=== PATIENT | female | born 1945 | race Caucasian/White ===

== ENCOUNTER 2019-06-08 11:22 | Inpatient (IN) ==
[2019-06-08] MEDS ORDERED: TUSSIONEX PENNKINETIC SUSP PO PRN (13:19)
[2019-06-08] MEDS ORDERED: ZOFRAN INJ 4 MG VIAL IVP PRN (13:19)
--- NOTE | 2019-06-08 13:45 | DR.H&P ---
H&P - History & Physical for Day of: H&P Date: 06/08/19 - Chief Complaint Chief Complaint: FEVER, CCC, FLU A - History of Present Illness History of Present Illness: PT IS 73 WF DIRECT ADMIT FROM DR SALDIVAR OFFICE WITH FLU A, BRONCHITIS FAILED OUTPT THERAPY WITH PO Z PACK TAMIFLU, IM KENALOG AND ROCEPHIN WITHOUT IMPROVEMENT. PT HAD FEVER IN OFFICE TODAY WITH DIFFUSE EXP WHEEZING ADN ELEVATED BP. PT ADMITTED FOR TREATMENT OF INFLUENZA A WITH BRONCHITIS, R/O PNEUMONIA - Past Medical History Past Medical History: Arthritis, Diabetes, Dyslipidemia, Hypertension - Social History Does patient currently use any type of tobacco product: No Have you used tobacco products in the last 12 months: No Type of Tobacco Use: None Does any household member use tobacco: No Alcohol Use: None Drug Use: None Risks, benefits, and alternatives of opioids discussed: Yes Prescription drug monitoring program results: PDMP reviewed and no concerns identified - Review of Systems Constitutional: Fever, Chills, Sweats Eyes: No Symptoms Reported ENT: Nose Discharge, Throat Pain Respiratory: Cough, Shortness of Breath, Sputum, Wheezing Cardiovascular: No Symptoms Reported Gastrointestinal: Nausea Genitourinary: No Symptoms Reported Musculoskeletal: Back Pain Skin: No Symptoms Reported Neurological: No Symptoms Reported Oriented: Normal Eyes: Normal Ear: Normal Nose: Normal Throat: Normal Respiratory: Diminished Throughout, Rhonchi Throughout, RLL Diminished, LLL Diminished Cardiovascular: Tachycardia : Normal Auscultation: Bowel Sounds: Normal Palpation: Normal Tenderness: Normal Skin: Decreased Turgur Musculoskeletal: Back:Thoracic, Back:Lumbar Psychiatric: Anxiety Affect: Anxious Speech Pattern: Clear, Appropriate - Assessment/Plan (1) Acute bronchitis Status: Acute Plan: ADMIT, ADMISSION CXR, LABS CBC CMP UA. RESP CONSULT FOR DUO NEBS, IV HYDRATION, IV ATBX AND IV SOLU MEDROL. BLOOD AND SPUTUM CULTURES ON ADMISSION. BS CONTROL, SSI. REPEAT AM LABS (2) Influenza A Status: Acute (3) Diabetes Status: Acute (4) Hypertension Status: Acute - Allergies Allergies/Adverse Reactions: Allergies Allergy/AdvReac Type Severity Reaction Status Date / Time No Known Drug Allergies Allergy Verified 06/08/19 13:47
--- NOTE | 2019-06-08 14:35 | RAD ---
HISTORYFever and bronchitisSTUDYPA and lateral chestCOMPARISONNoneFINDINGSThere is a mild patchy infiltrate in the right upper lobe anteriorly. The left lung is grossly clear. There is no effusion. The heart and mediastinum are unremarkable.IMPRESSIONMild right upper lobe anterior subsegmental atelectasis or pneumonitisElectronically signed by: HERBIE JUAN (Jun 08, 2019 14:34:22)
[2019-06-08 14:43] LABS: BASOPHILS # (AUTO) 0.1 X10^3/uL (0.0-0.1); BASOPHILS % (AUTO) 0.7 % (0.2-1.0); EOSINOPHILS # (AUTO) 0.1 x10^3/uL (0.0-0.2); EOSINOPHILS % (AUTO) 0.7 % (0.9-2.9); HEMATOCRIT 35.9 % (36.0-47.0); HEMOGLOBIN 12.1 g/dL (12.0-16.0); LYMPHOCYTES # (AUTO) 2.6 X10^3/uL (1.3-2.9); LYMPHOCYTES % (AUTO) 35.9 % (21.0-51.0); MEAN CORPUSCULAR HEMOGLOBIN 29.9 pg (27.0-34.0); MEAN CORPUSCULAR HGB CONC 33.6 g/dL (33.0-35.0); MEAN CORPUSCULAR VOLUME 88.9 fL (80.0-100.0); MEAN PLATELET VOLUME 6.6 fL (7.4-11.0); MONOCYTES # (AUTO) 0.5 x10^3/uL (0.3-0.8); NEUTROPHILS # (AUTO) 4.1 x10^3/uL (2.2-4.8); NEUTROPHILS % (AUTO) 55.7 % (42.0-75.0); PLATELET COUNT 358 X10^3/uL (150.0-450.0); RED BLOOD COUNT 4.04 X10^6/uL (3.5-5.4); RED CELL DISTRIBUTION WIDTH 13.8 % (11.6-16.5); WHITE BLOOD COUNT 7.3 X10^3/uL (3.6-10.0)
[2019-06-08 14:46] VITALS: BMI 24.0
[2019-06-08 14:56] LABS: ALANINE AMINOTRANSFERASE 35 Units/L (12-78); ALBUMIN 3.6 g/dL (3.4-5.0); ALKALINE PHOSPHATASE 71 Units/L (46-116); ASPARTATE AMINO TRANSFERASE 27 Units/L (15-37); BLOOD UREA NITROGEN 6 mg/dL (7-18); CALCIUM 9.2 mg/dL (8.5-10.1); CARBON DIOXIDE 27.3 mmol/L (21-32); CHLORIDE 102 mmol/L (98-107); COR NA(FOR HYPERGLY) 139 mmol/L (136-145); CREATININE 0.68 mg/dL (0.55-1.02); SODIUM 139 mmol/L (136-145); TOTAL PROTEIN 7.7 g/dL (6.4-8.2); eGFR NON BLACK RACES > 60 (>60)
[2019-06-08] MEDS: NS 1000 ML 1,000 ML IV SCH (15:24)
[2019-06-08] MEDS: ROBITUSSIN (PLAIN) PO SCH ×3 (15:24→21:42)
[2019-06-08] MEDS: SOLU-Medrol 125 MG VIAL IVP SCH ×3 (15:25→21:47)
[2019-06-08] MEDS ORDERED: SALINE 3% 15 ML NEB TX NEB ONE (16:28)
[2019-06-08] MEDS: PROVENTIL NEB TX 0.083% 2.5MG/ 3ML NEB SCH ×2 (17:24→21:10)
[2019-06-08] MEDS: ZITHROMAX INJ 500 MG VIAL 500 MG in NS 250 ML IV 250 ML IV SCH (18:39)
[2019-06-08] MEDS: SNACK - Diabetic Appropriate PO SCH (20:55)
[2019-06-09] MEDS: HumuLIN R SUBCUT PRN ×5 (00:42→21:19)
[2019-06-09 06:20] LABS: BASOPHILS % (AUTO) 0.2 % (0.2-1.0); HEMATOCRIT 32.7 % (36.0-47.0); HEMOGLOBIN 11.2 g/dL (12.0-16.0); LYMPHOCYTES # (AUTO) 1.6 X10^3/uL (1.3-2.9); LYMPHOCYTES % (AUTO) 20.8 % (21.0-51.0); MEAN CORPUSCULAR HEMOGLOBIN 30.1 pg (27.0-34.0); MEAN CORPUSCULAR HGB CONC 34.2 g/dL (33.0-35.0); MEAN PLATELET VOLUME 6.9 fL (7.4-11.0); MONOCYTES # (AUTO) 0.1 x10^3/uL (0.3-0.8); NEUTROPHILS # (AUTO) 5.8 x10^3/uL (2.2-4.8); PLATELET COUNT 353 X10^3/uL (150.0-450.0); RED BLOOD COUNT 3.72 X10^6/uL (3.5-5.4); RED CELL DISTRIBUTION WIDTH 13.1 % (11.6-16.5); WHITE BLOOD COUNT 7.6 X10^3/uL (3.6-10.0)
[2019-06-09 06:29] LABS: ALANINE AMINOTRANSFERASE 33 Units/L (12-78); ALBUMIN 3.1 g/dL (3.4-5.0); ALKALINE PHOSPHATASE 60 Units/L (46-116); ASPARTATE AMINO TRANSFERASE 27 Units/L (15-37); BLOOD UREA NITROGEN 8 mg/dL (7-18); CALCIUM 8.7 mg/dL (8.5-10.1); CARBON DIOXIDE 26.2 mmol/L (21-32); CHLORIDE 103 mmol/L (98-107); COR CA(FOR HYPOALB) 9.4 mg/dL (8.5-10.1); COR NA(FOR HYPERGLY) 141 mmol/L (136-145); CREATININE 0.58 mg/dL (0.55-1.02); SODIUM 138 mmol/L (136-145); TOTAL PROTEIN 6.9 g/dL (6.4-8.2); eGFR NON BLACK RACES > 60 (>60)
[2019-06-09] MEDS: NS 1000 ML 1,000 ML IV SCH ×2 (06:38→16:22)
[2019-06-09 07:31] LABS: PLATELET MORPHOLOGY COMMENT NORMAL (NORMAL)
[2019-06-09] MEDS: PROVENTIL NEB TX 0.083% 2.5MG/ 3ML NEB SCH ×4 (08:55→20:23)
[2019-06-09] MEDS: ZITHROMAX INJ 500 MG VIAL 500 MG in NS 250 ML IV 250 ML IV SCH (09:16)
[2019-06-09] MEDS: ROBITUSSIN (PLAIN) PO SCH ×4 (09:16→21:19)
[2019-06-09] MEDS: TYLENOL 325 MG TAB PO PRN (10:50)
[2019-06-09] MEDS: LOVENOX INJ 40 MG SYR SC SCH (10:51)
[2019-06-09] MEDS ORDERED: TORADOL 15 MG VIAL IVP ONE (13:06)
[2019-06-09] MEDS: SYNTHROID 75 mcg TAB PO SCH (14:13)
[2019-06-09] MEDS: ZESTRIL TAB 5 MG PO SCH ×2 (14:13→21:19)
[2019-06-09] MEDS: FERROUS GLUCONATE PO SCH (14:13)
[2019-06-09] MEDS: FOLTX PO SCH (14:14)
[2019-06-09] MEDS: SNACK - Diabetic Appropriate PO SCH (21:18)
[2019-06-09] MEDS: ZOCOR TAB 20 MG PO SCH (21:19)
[2019-06-10] MEDS: NS 1000 ML 1,000 ML IV SCH ×3 (06:15→21:34)
[2019-06-10 06:32] LABS: BASOPHILS % (AUTO) 0.2 % (0.2-1.0); EOSINOPHILS % (AUTO) 0.1 % (0.9-2.9); HEMATOCRIT 29.1 % (36.0-47.0); HEMOGLOBIN 9.9 g/dL (12.0-16.0); LYMPHOCYTES # (AUTO) 3.1 X10^3/uL (1.3-2.9); LYMPHOCYTES % (AUTO) 21.1 % (21.0-51.0); MEAN CORPUSCULAR HEMOGLOBIN 30.1 pg (27.0-34.0); MEAN CORPUSCULAR VOLUME 88.5 fL (80.0-100.0); MEAN PLATELET VOLUME 6.6 fL (7.4-11.0); MONOCYTES # (AUTO) 1.4 x10^3/uL (0.3-0.8); MONOCYTES % (AUTO) 9.5 % (0.0-13.0); NEUTROPHILS # (AUTO) 10.3 x10^3/uL (2.2-4.8); NEUTROPHILS % (AUTO) 69.1 % (42.0-75.0); PLATELET COUNT 369 X10^3/uL (150.0-450.0); RED BLOOD COUNT 3.29 X10^6/uL (3.5-5.4); RED CELL DISTRIBUTION WIDTH 13.7 % (11.6-16.5); WHITE BLOOD COUNT 14.8 X10^3/uL (3.6-10.0)
[2019-06-10 06:44] LABS: ALANINE AMINOTRANSFERASE 34 Units/L (12-78); ALBUMIN 2.9 g/dL (3.4-5.0); ALKALINE PHOSPHATASE 52 Units/L (46-116); ASPARTATE AMINO TRANSFERASE 27 Units/L (15-37); BLOOD UREA NITROGEN 10 mg/dL (7-18); CALCIUM 8.3 mg/dL (8.5-10.1); CARBON DIOXIDE 25.6 mmol/L (21-32); CHLORIDE 108 mmol/L (98-107); COR CA(FOR HYPOALB) 9.2 mg/dL (8.5-10.1); COR NA(FOR HYPERGLY) 144 mmol/L (136-145); CREATININE 0.74 mg/dL (0.55-1.02); SODIUM 143 mmol/L (136-145); TOTAL PROTEIN 6.1 g/dL (6.4-8.2); eGFR NON BLACK RACES > 60 (>60)
[2019-06-10] MEDS: PROVENTIL NEB TX 0.083% 2.5MG/ 3ML NEB SCH ×4 (08:40→21:03)
[2019-06-10] MEDS: ZESTRIL TAB 5 MG PO SCH ×2 (09:14→20:44)
[2019-06-10] MEDS: SYNTHROID 75 mcg TAB PO SCH (09:14)
[2019-06-10] MEDS: FOLTX PO SCH (09:14)
[2019-06-10] MEDS: FERROUS GLUCONATE PO SCH (09:14)
[2019-06-10] MEDS: LOVENOX INJ 40 MG SYR SC SCH (09:14)
[2019-06-10] MEDS: ROBITUSSIN (PLAIN) PO SCH ×4 (09:14→20:44)
[2019-06-10] MEDS: ZITHROMAX INJ 500 MG VIAL 500 MG in NS 250 ML IV 250 ML IV SCH (09:15)
[2019-06-10] MEDS: TYLENOL 325 MG TAB PO PRN (09:25)
[2019-06-10] MEDS: HumuLIN R SUBCUT PRN ×2 (11:21→20:43)
--- NOTE | 2019-06-10 13:32 | RAD ---
HISTORYBronchitisSTUDYChest, PA and [id number]/13/2020FINDINGSContinued normal heart size. The left chest remains clear. There i s persistent but decrease right upper lobe infiltrate. There is no new abnormality, pleural fluid or hilar adenopathy.IMPRESSIONPersistent but improved right upper lobe infiltrate. No new abnormality. C ontinued follow-up indicated.Electronically signed by: LILLIAN PARKINSON (Jun 10, 2019 13:30:58)
[2019-06-10] MEDS: SOLU-Medrol 40 MG VIAL IVP SCH ×2 (15:38→21:34)
[2019-06-10] MEDS ORDERED: KLOR-CON PO PRN (18:30)
[2019-06-10] MEDS ORDERED: K-DUR TAB 20 MEQ PO PRN (18:30)
[2019-06-10] MEDS ORDERED: POTASSIUM CHL 40 MEQ/NS 0.45% 500 ML IV PRN (18:30)
[2019-06-10] MEDS ORDERED: POTASSIUM CHLORIDE LIQ 20 MEQ UDC PO PRN (18:30)
[2019-06-10] MEDS ORDERED: K-RIDER 10 MEQ/NS 100 ML 10 MEQ/100 ML BAG IV PRN (18:30)
[2019-06-10] MEDS ORDERED: POTASSIUM CHL 60 MEQ/NS 0.45% 500 ML IV PRN (18:30)
[2019-06-10] MEDS ORDERED: MICRO K EXTEN CAP 10 MEQ PO PRN (18:30)
[2019-06-10] MEDS: SNACK - Diabetic Appropriate PO SCH (20:42)
[2019-06-10] MEDS: ZOCOR TAB 20 MG PO SCH (20:44)
[2019-06-10] MEDS: MAGNESIUM SULFATE 1 GRAM/100 mL PREMIX 1 GM/100 ML BAG IV PRN ×2 (20:45→21:52)
[2019-06-11] MEDS: SOLU-Medrol 40 MG VIAL IVP SCH (05:34)
[2019-06-11] MEDS: HumuLIN R SUBCUT PRN (05:35)
[2019-06-11] MEDS: NS 1000 ML 1,000 ML IV SCH (05:53)
--- NOTE | 2019-06-11 06:33 | RAD ---
HISTORYFollow-up pneumoniaSTUDYCHEST, PA/LAT [id number]/15/2020FINDINGSThe heart is within normal limits in size. The bud are normal. The lungs are well inflated and free of acute infiltrates. The right upper lobe is now clear. No pleural effusions are identified. Bony thorax is unremarkable.IMPRESSIONLungs now clearElectronically signed by: JORGE SHELTON (Jun 11, 2019 06:31:44)
[2019-06-11 06:37] LABS: BASOPHILS % (AUTO) 0.3 % (0.2-1.0); HEMATOCRIT 29.4 % (36.0-47.0); LYMPHOCYTES # (AUTO) 1.5 X10^3/uL (1.3-2.9); MEAN CORPUSCULAR HEMOGLOBIN 29.9 pg (27.0-34.0); MEAN CORPUSCULAR HGB CONC 34.1 g/dL (33.0-35.0); MEAN CORPUSCULAR VOLUME 87.8 fL (80.0-100.0); MEAN PLATELET VOLUME 6.6 fL (7.4-11.0); MONOCYTES # (AUTO) 0.7 x10^3/uL (0.3-0.8); MONOCYTES % (AUTO) 5.4 % (0.0-13.0); NEUTROPHILS # (AUTO) 10.4 x10^3/uL (2.2-4.8); NEUTROPHILS % (AUTO) 82.3 % (42.0-75.0); PLATELET COUNT 409 X10^3/uL (150.0-450.0); RED BLOOD COUNT 3.35 X10^6/uL (3.5-5.4); RED CELL DISTRIBUTION WIDTH 13.4 % (11.6-16.5); WHITE BLOOD COUNT 12.7 X10^3/uL (3.6-10.0)
[2019-06-11 06:45] LABS: ALANINE AMINOTRANSFERASE 37 Units/L (12-78); ALBUMIN 2.9 g/dL (3.4-5.0); ALKALINE PHOSPHATASE 54 Units/L (46-116); ASPARTATE AMINO TRANSFERASE 22 Units/L (15-37); BLOOD UREA NITROGEN 7 mg/dL (7-18); CALCIUM 8.4 mg/dL (8.5-10.1); CARBON DIOXIDE 26.6 mmol/L (21-32); CHLORIDE 106 mmol/L (98-107); COR CA(FOR HYPOALB) 9.3 mg/dL (8.5-10.1); COR NA(FOR HYPERGLY) 144 mmol/L (136-145); CREATININE 0.52 mg/dL (0.55-1.02); MAGNESIUM 2.4 mg/dL (1.7-2.9); SODIUM 141 mmol/L (136-145); TOTAL PROTEIN 6.3 g/dL (6.4-8.2); eGFR NON BLACK RACES > 60 (>60)
[2019-06-11 07:12] LABS: BAND NEUTROPHILS % 4 % (0-10); PLATELET MORPHOLOGY COMMENT NORMAL (NORMAL)
[2019-06-11] MEDS: PROVENTIL NEB TX 0.083% 2.5MG/ 3ML NEB SCH (09:32)
[2019-06-11] MEDS: ROBITUSSIN (PLAIN) PO SCH (10:28)
[2019-06-11] MEDS: FOLTX PO SCH (10:28)
[2019-06-11] MEDS: SYNTHROID 75 mcg TAB PO SCH (10:29)
[2019-06-11] MEDS: FERROUS GLUCONATE PO SCH (10:29)
[2019-06-11] MEDS: ZESTRIL TAB 5 MG PO SCH (10:29)
[2019-06-11 11:00] VITALS: BP 174/87
== END 2019-06-11 10:55 | disposition home or self-care (01) | DRG 195 ==
LOC: MED/SURG 13:03
PROVIDERS: ADMIT Internal Medicine; ATTEND Internal Medicine
DX: E78.49 Other hyperlipidemia; J10.1 Influenza due to other identified influenza virus with other respiratory manifestations; I10 Essential (primary) hypertension; J18.0 Bronchopneumonia, unspecified organism; M19.90 Unspecified osteoarthritis, unspecified site; E11.65 Type 2 diabetes mellitus with hyperglycemia
CPT/HCPCS: 36415; 71020; 71046; 80053; 83735; 85025; 87040; 87070; 87205; 94640; 94760; 97161; A4222; J0456; J1650; J1815; J1885; J2920; J2930; J3475; J3490; J7030; J7050; J7613

== ENCOUNTER 2021-04-28 13:02 | Inpatient (IN) ==
[2021-04-28 13:35] LABS: ABG BASE EXCESS 3.7 mmol/L (-2.0-2.0); ABG HCO3 27.7 mmol/L (22-26)
[2021-04-28 13:37] LABS: ABG ALLEN TEST POS
--- NOTE | 2021-04-28 14:09 | DR.SOBA ---
HPI Time Seen Time Seen by Provider: 04/28/21 13:58 Primary Care Physician Primary Care Physician: MAURICIO VENTURA Complaints Chief Complaint Doctors Comments: SOB for 1 week with syncopal episode this am while making a cup of coffee at the sink. Upon ariva o2 sT WAS IN THE 70'S AND 80'S Chief Complaint:: PT C/O SHORTNESS OF BREATH X1 WEEK, SYNCOPE EPISODE ONSET THIS AM, & FEELING LIKE SHE IS DEHYDRATED X2-3. PT STATES SHE WAS STANDING @ SINK TRYING TO FIX A CUP F COFFEE & PASSED OUT. UPON ARRIVA PT'S O2 SATS IN THE 70'S & 80'S. PT DENIES ANY HX OF COPD & CHF @ THIS TIME. COVID-19 Coronavirus risk:travel/contact w/high risk person: No Has patient experienced Coronavirus symptoms: No Source History Provided: Patient Mode of Arrival Mode of Arrival: Wheelchair Timing Onset of Chief Complaint: 04/21/21 PMH PMH Past Medical History: Yes Past Medical History: Arthritis, Diabetes, Dyslipidemia and Hypertension Past Surgical History: No Surgical History: No History Family History History of Family Medical Conditions: Yes Family Medical History: PA Social History Do you use any recreational Drugs:: No Travel Risk Coronavirus risk:travel/contact w/high risk person: No Has patient experienced Coronavirus symptoms: No Infectious screening Have you traveled outside the country in the last 6 months?: No Isolation: Standard ROS Review of Systems Constitutional: Weakness Eyes: No Symptoms Reported ENTM: No Symptoms Reported Respiratoy: Moist Cough and Short of Breath Cardiovascular: No Symptoms Reported Gastrointestinal/Abdominal: No Symptoms Reported Genitourinary: No Symptoms Reported Neurological: Other (SYNCOPAL EPISODE THIS AM) Musculoskeletal: No Symptoms Reported Integumentary: No Symptoms Reported Hematologic/Lymphatic: No Symptoms Reported Endocrine: No Symptoms Reported Psychiatric: No Symptoms Reported All Other Systems: Reviewed and Negative PE Vital Signs Vitals: Temperature 98.2 F Pulse Rate 91 Respiratory Rate 24 Blood Pressure [Left Arm] 165/89 Blood Pressure 172/82 O2 Sat by Pulse Oximetry 98 General Limitations: Other (APPEARED LETHARGIC) General Appearance: Alert and In No Apparent Distress Head Head Exam: Normal Inspection Eyes Eye exam: Normal Appearance ENT ENT Exam: Normal Exam Neck Neck Exam: Normal Inspection Chest Chest Inspection: Normal Inspection Respiratory Respiratory Exam: Bilateral: Rhonchi and Bilateral: Decreased Breath Sounds Cardiovascular Cardiovascular Exam: Regular Rate and Normal Rhythm Abdominal Exam Abdominal Exam: Normal Inspection, Normal Bowel Sounds and Soft Extremities Extremities Exam: Normal Inspection Back Back Exam: Normal Inspection Neurologic Neurological Exam: Alert and Oriented X3 Psychiatric Psychiatric Exam: Normal Affect and Normal Mood Skin Skin Exam: Warm, Dry, Intact and Normal Color MDM Differential Diagnosis Differential Diagnosis Comment:: PNEUMONIA,dYSPNEA,HYPOXIA,SYNCOPAL EPISODE,DEHYDRATION COURSE Consultation Consultation Comments: sPOKE TO dR Hoang AT 1645 AND SHE STATED TO ADMITH THE PATIENT TO THE [facility] Labs Reviewed Result Diagrams: 04/28/21 13:22 04/28/21 13:22 Laboratory: WBC 16.4 X10^3/uL (3.6-10.0) H 04/28/21 13:22 RBC 4.14 X10^6/uL (3.5-5.4) 04/28/21 13:22 Hgb 12.0 g/dL (12.0-16.0) 04/28/21 13:22 Hct 35.4 % (36.0-47.0) L 04/28/21 13:22 MCV 85.5 fL (80.0-100.0) 04/28/21 13:22 MCH 29.1 pg (27.0-34.0) 04/28/21 13:22 MCHC 34.0 g/dL (33.0-35.0) 04/28/21 13:22 RDW 13.5 % (11.6-16.5) 04/28/21 13:22 Plt Count 518 X10^3/uL (150.0-450.0) H 04/28/21 13:22 MPV 6.6 fL (7.4-11.0) L 04/28/21 13:22 Neut % (Auto) 74.6 % (42.0-75.0) 04/28/21 13:22 Lymph % (Auto) 11.4 % (21.0-51.0) L 04/28/21 13:22 [place] % (Auto) 13.8 % (0.0-13.0) H 04/28/21 13:22 Eos % (Auto) 0.0 % (0.9-2.9) L 04/28/21 13:22 Baso % (Auto) 0.2 % (0.2-1.0) 04/28/21 13:22 Neut # (Auto) 12.2 x10^3/uL (2.2-4.8) H 04/28/21 13:22 Lymph # (Auto) 1.9 X10^3/uL (1.3-2.9) 04/28/21 13:22 [place] # (Auto) 2.3 x10^3/uL (0.3-0.8) H 04/28/21 13:22 Eos # (Auto) 0.0 x10^3/uL (0.0-0.2) 04/28/21 13:22 Baso # (Auto) 0.0 X10^3/uL (0.0-0.1) 04/28/21 13:22 Absolute Nucleated RBC 0.2 /100WBC 04/28/21 13:22 Sample Site Rra 04/28/21 13:32 ABG pH 7.460 (7.35-7.45) H 04/28/21 13:32 ABG pCO2 39.0 mmHg (35.0-45.0) 04/28/21 13:32 ABG pO2 47.0 mmHg (80.0-100.0) L* 04/28/21 13:32 ABG HCO3 27.7 mmol/L (22-26) H 04/28/21 13:32 ABG O2 Saturation 85.0 % (90-100) L 04/28/21 13:32 ABG Base Excess 3.7 mmol/L (-2.0-2.0) H 04/28/21 13:32 Patrice Test Pos 04/28/21 13:32 A-a Gradient 54.0 mmHg 04/28/21 13:32 FiO2 21.0 04/28/21 13:32 Blood Gas Comments Pt nigel well eb 04/28/21 13:32 Sodium 135 mmol/L (136-145) L 04/28/21 13:22 Corrected Sodium 137 mmol/L (136-145) 04/28/21 13:22 Potassium 3.7 mmol/L (3.5-5.1) 04/28/21 13:22 Chloride 97 mmol/L (98-107) L 04/28/21 13:22 Carbon Dioxide 28.3 mmol/L (21-32) 04/28/21 13:22 BUN 12 mg/dL (7-18) 04/28/21 13:22 Creatinine 0.67 mg/dL (0.55-1.02) 04/28/21 13:22 Est GFR (MDRD) Af Amer > 60 (>60) 04/28/21 13:22 Est GFR (MDRD) Non-Af > 60 (>60) 04/28/21 13:22 Glucose 193 mg/dL (65-99) H 04/28/21 13:22 Calcium 9.1 mg/dL (8.5-10.1) 04/28/21 13:22 Corrected Calcium 9.9 mg/dL (8.5-10.1) 04/28/21 13:22 Total Bilirubin 0.40 mg/dL (0.2-1.0) 04/28/21 13:22 AST 33 Units/L (15-37) 04/28/21 13:22 ALT 40 Units/L (12-78) 04/28/21 13:22 Alkaline Phosphatase 71 Units/L (46-116) 04/28/21 13:22 Creatine Kinase 44 Units/L (26-192) 04/28/21 13:22 CK-MB (CK-2) < 1.0 ng/mL (0-4.0) 04/28/21 13:22 CK/CKMB % Calc 2.3 % (<4) 04/28/21 13:22 Troponin I < 0.02 ng/mL (0-1.5) 04/28/21 13:22 Total Protein 7.2 g/dL (6.4-8.2) 04/28/21 13:22 Albumin 3.0 g/dL (3.4-5.0) L 04/28/21 13:22 Globulin 4.2 g/dL (2.5-4.5) 04/28/21 13:22 Albumin/Globulin Ratio 0.7 Ratio (1.1-2.1) L 04/28/21 13:22 SARS-CoV-2 (PCR) Positive (NEGATIVE) A 04/28/21 14:42 Influenza Type A (PCR) Negative (NEGATIVE) 04/28/21 14:42 Influenza Type B (PCR) Negative (NEGATIVE) 04/28/21 14:42 RSV (PCR) Negative (NEGATIVE) 04/28/21 14:42 Opioid Opioid Risk Tool Age (Carlos box if 16-45): No History of Preadolescent Sexual Abuse: No Total: 0 Total Score Risk Category: Low Risk Copyright: [employer] GR[employer]ER predicting aberrant behaviors
--- NOTE | 2021-04-28 14:22 | RAD ---
CHEST, 1 VIEWHISTORY: SYNCOPE, LOW O2 SATStudy: Single view of the chest.Comparison:06/11/2019Findings:The cardiomediastinal silhouette is normal. Bilateral interstitial prominence, possible early alveolar infiltrates. No focal consolidations, pleural effusions or pneumothorax. Osseous structures demonstrate no acute abnormality.IMPRESSION:1. Bilateral interstitial prominence and early alveolar infiltrates. Findings may represent atypical infection, including viral etiologies.Electronically signed by: TAN HEREDIA (Apr 28, 2021 14:20:11)
[2021-04-28 14:25] LABS: BASOPHILS % (AUTO) 0.2 % (0.2-1.0); HEMATOCRIT 35.4 % (36.0-47.0); LYMPHOCYTES # (AUTO) 1.9 X10^3/uL (1.3-2.9); LYMPHOCYTES % (AUTO) 11.4 % (21.0-51.0); MEAN CORPUSCULAR HEMOGLOBIN 29.1 pg (27.0-34.0); MEAN CORPUSCULAR VOLUME 85.5 fL (80.0-100.0); MEAN PLATELET VOLUME 6.6 fL (7.4-11.0); MONOCYTES # (AUTO) 2.3 x10^3/uL (0.3-0.8); MONOCYTES % (AUTO) 13.8 % (0.0-13.0); NEUTROPHILS # (AUTO) 12.2 x10^3/uL (2.2-4.8); NEUTROPHILS % (AUTO) 74.6 % (42.0-75.0); PLATELET COUNT 518 X10^3/uL (150.0-450.0); RED BLOOD COUNT 4.14 X10^6/uL (3.5-5.4); RED CELL DISTRIBUTION WIDTH 13.5 % (11.6-16.5); WHITE BLOOD COUNT 16.4 X10^3/uL (3.6-10.0)
--- NOTE | 2021-04-28 14:43 | CT ---
HISTORYSYNCOPESTUDYBRAIN W/O CONCOMPARISONNone.TECHNIQUEMultiple axial images of the head were performed from the skullbase to the vertex using standard departmental protocol. Sagittal and coronal reformatted images were performed. Dose reduction techniques including Automated Exposure Control (AEC) and adjustment of mA and kV were utilized.FINDINGSThe lateral ventricles and basilar cisterns are patent.No parenchymal mass or hematoma. Thompson-white differentiation appears acutely preserved. Mild low attenuation change in the subcortical and deep supratentorial white matter.No extra-axial collection.The globes are intact.Opacified left maxillary sinus. Partial sclerosis of the left mastoid air cells.The calvarium is intact.IMPRESSIONNo acute intracranial abnormality. Opacified left maxillary sinus. Correlate for sinusitis. Partially sclerotic left mastoid air cells likely due to chronic mastoiditis.Electronically signed by: Noah Brian (Apr 28, 2021 14:42:09)
[2021-04-28 15:31] LABS: ALANINE AMINOTRANSFERASE 40 Units/L (12-78); ALKALINE PHOSPHATASE 71 Units/L (46-116); ASPARTATE AMINO TRANSFERASE 33 Units/L (15-37); BLOOD UREA NITROGEN 12 mg/dL (7-18); CALCIUM 9.1 mg/dL (8.5-10.1); CARBON DIOXIDE 28.3 mmol/L (21-32); CHLORIDE 97 mmol/L (98-107); CKMB % 2.3 % (<4); COR CA(FOR HYPOALB) 9.9 mg/dL (8.5-10.1); COR NA(FOR HYPERGLY) 137 mmol/L (136-145); CREATINE KINASE 44 Units/L (26-192); CREATINE KINASE MB < 1.0 ng/mL (0-4.0); CREATININE 0.67 mg/dL (0.55-1.02); SODIUM 135 mmol/L (136-145); TOTAL PROTEIN 7.2 g/dL (6.4-8.2); TROPONIN I < 0.02 ng/mL (0-1.5); eGFR NON BLACK RACES > 60 (>60)
[2021-04-28] MEDS ORDERED: REMDESIVIR IV ONE (17:14)
[2021-04-28] MEDS ORDERED: NS 250 ML IV 250 ML IV ONE (17:14)
[2021-04-28] MEDS ORDERED: REMDESIVIR 200 MG in NS 250 ML IV 250 ML IV ONE ×2 (17:40→19:14)
[2021-04-28] MEDS ORDERED: NS 1,000 ML IV 1,000 ML IV SCH (19:14)
[2021-04-28] MEDS: PULMICORT NEB TX 0.5 MG NEB SCH (20:48)
[2021-04-28] MEDS: BROVANA IN SCH (20:48)
[2021-04-28] MEDS ORDERED: BROVANA IN SCH (21:00)
[2021-04-28] MEDS ORDERED: PULMICORT NEB TX 0.5 MG NEB SCH (21:00)
[2021-04-28] MEDS: LOVENOX INJ 30 MG SYR SC SCH (21:03)
[2021-04-28] MEDS ORDERED: GLUCOPHAGE ONE (21:16)
[2021-04-28] MEDS: ASCORBIC ACID INJ MULTI-DOSE VIAL 1,500 MG in NS 100 ML IV 100 ML IV SCH (21:54)
[2021-04-28] MEDS: GLUCOPHAGE PO SCH (21:55)
[2021-04-28] MEDS: ZOSYN VIAL 3.375 GRAMS 3.375 G in NS 100 ML IV + SPIKE MINIBAG* 100 ML IV SCH (21:58)
[2021-04-28] MEDS: PEPCID TAB 40 MG PO SCH (21:58)
[2021-04-28] MEDS: SOLU-Medrol 40 MG VIAL IVP SCH (21:59)
[2021-04-28] MEDS: VIBRAMYCIN PO SCH (21:59)
[2021-04-28] MEDS: ZINC SULFATE PO SCH (21:59)
[2021-04-28] MEDS ORDERED: MOTRIN TAB 600 MG PO PRN (23:05)
[2021-04-28 23:28] LABS: BILIRUBIN,URINE NEGATIVE (NEGATIVE); BLOOD/HEMOGLOBIN,URINE 1+ (NEGATIVE); GLUCOSE, URINE 3+ (NEGATIVE); KETONES,URINE 3+ (NEGATIVE); LEUKOCYTE ESTERASE ,URINE NEGATIVE (NEGATIVE); NITRITES,URINE NEGATIVE (NEGATIVE); PROTEIN,URINE 2+ (NEGATIVE); UROBILINOGEN,URINE NORMAL (NORMAL)
[2021-04-28 23:46] LABS: APPEARANCE,URINE CLEAR (CLEAR); BACTERIA,URINE NEGATIVE /HPF (NEGATIVE); COLOR,URINE YELLOW (YELLOW); RBC,URINE 0-2 /HPF (0-3); SQUAMOUS EPITHELIAL CELL,UR RARE /HPF (NEGATIVE)
[2021-04-29] MEDS: ASCORBIC ACID INJ MULTI-DOSE VIAL 1,500 MG in NS 100 ML IV 100 ML IV SCH ×2 (03:50→08:09)
[2021-04-29 05:13] LABS: BASOPHILS % (AUTO) 0.6 % (0.2-1.0); HEMATOCRIT 31.2 % (36.0-47.0); HEMOGLOBIN 10.9 g/dL (12.0-16.0); LYMPHOCYTES # (AUTO) 0.7 X10^3/uL (1.3-2.9); LYMPHOCYTES % (AUTO) 8.2 % (21.0-51.0); MEAN CORPUSCULAR HEMOGLOBIN 29.4 pg (27.0-34.0); MEAN CORPUSCULAR HGB CONC 34.9 g/dL (33.0-35.0); MEAN PLATELET VOLUME 6.7 fL (7.4-11.0); MONOCYTES # (AUTO) 0.3 x10^3/uL (0.3-0.8); MONOCYTES % (AUTO) 4.1 % (0.0-13.0); NEUTROPHILS # (AUTO) 7.2 x10^3/uL (2.2-4.8); NEUTROPHILS % (AUTO) 87.1 % (42.0-75.0); PLATELET COUNT 431 X10^3/uL (150.0-450.0); RED BLOOD COUNT 3.72 X10^6/uL (3.5-5.4); RED CELL DISTRIBUTION WIDTH 13.3 % (11.6-16.5)
[2021-04-29 05:23] LABS: ALANINE AMINOTRANSFERASE 29 Units/L (12-78); ALBUMIN 2.4 g/dL (3.4-5.0); ALKALINE PHOSPHATASE 61 Units/L (46-116); ASPARTATE AMINO TRANSFERASE 21 Units/L (15-37); BLOOD UREA NITROGEN 10 mg/dL (7-18); CALCIUM 8.3 mg/dL (8.5-10.1); CARBON DIOXIDE 27.1 mmol/L (21-32); CHLORIDE 99 mmol/L (98-107); COR CA(FOR HYPOALB) 9.6 mg/dL (8.5-10.1); COR NA(FOR HYPERGLY) 140 mmol/L (136-145); CREATININE 0.57 mg/dL (0.55-1.02); SODIUM 136 mmol/L (136-145); eGFR NON BLACK RACES > 60 (>60)
[2021-04-29 05:37] LABS: WHITE BLOOD COUNT 8.3 X10^3/uL (3.6-10.0)
[2021-04-29] MEDS: ZOSYN VIAL 3.375 GRAMS 3.375 G in NS 100 ML IV + SPIKE MINIBAG* 100 ML IV SCH ×3 (05:52→22:00)
[2021-04-29] MEDS: SOLU-Medrol 40 MG VIAL IVP SCH ×3 (05:52→22:00)
[2021-04-29] MEDS: NovoLIN R (or HumuLIN R) SUBCUT PRN ×4 (05:53→20:56)
[2021-04-29 06:41] LABS: ABG ALLEN TEST POS; ABG BASE EXCESS 6.3 mmol/L (-2.0-2.0); ABG HCO3 29.4 mmol/L (22-26)
--- NOTE | 2021-04-29 07:04 | RAD ---
CHEST, 1 VIEWHISTORY: COVID PNEUMONIAStudy: Single view of the chest.Comparison:April 28, 2021Findings:The cardiomediastinal silhouette is normal. No change in the appearance of bilateral insterstitial and airspace opacities. Osseous structures demonstrate no acute abnormality.IMPRESSION:1. No change from prior.Electronically signed by: TAN HEREDIA (Apr 29, 2021 07:03:23)
[2021-04-29] MEDS ORDERED: GLUCOPHAGE ONE (07:42)
[2021-04-29] MEDS ORDERED: NS 100 ML IV 100 ML ONE (07:43)
[2021-04-29] MEDS: SYNTHROID 75 mcg TAB PO SCH (07:50)
[2021-04-29] MEDS: ZINC SULFATE PO SCH ×2 (08:10→20:54)
[2021-04-29] MEDS: LOVENOX INJ 30 MG SYR SC SCH ×2 (08:10→20:54)
[2021-04-29] MEDS: HEMOCYTE-PLUS PO SCH (08:11)
[2021-04-29] MEDS: VIBRAMYCIN PO SCH ×2 (08:11→20:56)
[2021-04-29] MEDS: PEPCID TAB 40 MG PO SCH ×2 (08:11→20:56)
[2021-04-29] MEDS: CYMBALTA PO SCH (08:11)
[2021-04-29] MEDS: REMDESIVIR 100 MG in NS 100 ML IV + SPIKE MINIBAG* 120 ML IV SCH (08:12)
[2021-04-29] MEDS: ZESTRIL TAB 5 MG PO SCH ×2 (08:12→20:56)
[2021-04-29] MEDS: GLUCOPHAGE PO SCH (08:12)
[2021-04-29] MEDS ORDERED: VITAMIN A PO SCH (09:00)
[2021-04-29] MEDS ORDERED: VITAMIN D (1.25MG) PO SCH (09:00)
[2021-04-29] MEDS ORDERED: MOBIC TAB 15 MG PO SCH (09:00)
[2021-04-29] MEDS ORDERED: TRICOR TAB 160 MG PO SCH (09:00)
[2021-04-29] MEDS: PULMICORT NEB TX 0.5 MG NEB SCH ×2 (09:09→20:18)
[2021-04-29] MEDS: BROVANA IN SCH ×2 (09:09→20:18)
--- NOTE | 2021-04-29 11:20 | DR.H&P ---
H&P History & Physical for Day of: H&P Date: 04/29/21 Chief Complaint Chief Complaint: dyspnea, syncope Allergies Allergies Allergy/AdvReac Type Severity Reaction Status Date / Time No Known Drug Allergies Allergy Verified 06/08/19 13:47 History of Present Illness History of Present Illness: Ms Can is a 75y/o female with a PMH of HTN, DM, HLD and hypothyroidism presented with worsening dyspnea and syncopal episode. She reports being sick for a week and had been taking antibiotics. She had a syncopal episode yesterday while she was standing making coffee and was brought to the hospital. She reports decreased appetite and weakness. In the ER, she tested positive for COVID-19. CXR showed b/l opacities concerning for atypical infection. Her O2 sats on admission were in the 70s. ABG showed hypoxia, she was placed on 3L NC. She is currently on 4L with sats in 88-90%. Grimes was placed due to patient being hypoxic with exertion and due to dizziness. Patient was admitted to ICU with covid-19 protocol. Labs and imaging reviewed Plan: continue COVID protocol an ICU care, Wean O2 s tolerated to keep sats > 88%. Continue nebs, pulmicort and IS. Continue IV Remdesivir, Zosyn, doxycycline an Solumedrol. Continue vitamin support. Will order CTA to rule out PE. Check CRP. Resume home medications. Monitor AM labs/imaging. Time spent for clinical assessment, physical exam, reviewing abs/imaging, decision making an documentation greater than 45 mins. Past Medical History Past Medical History: Arthritis, Diabetes, Dyslipidemia and Hypertension Past Surgical History Surgical History: No History Family History Family Medical History: Diabetes Mellitus and Hypertension Social History Does patient currently use any type of tobacco product: No Have you used tobacco products in the last 12 months: No Type of Tobacco Use: None Alcohol Use: None Drug Use: None Prescription drug monitoring program results: PDMP reviewed and no concerns identified Medications Home Medications: No Known Drug Allergies Allergy (Verified 06/08/19 13:47) CONTINUE taking the following medications ibuprofen 600 mg PO BID 04/28/21 [History] Labs Result Diagrams: 04/29/21 04:24 04/29/21 04:24 Labs: Laboratory WBC 8.3 X10^3/uL (3.6-10.0) D 04/29/21 04:24 RBC 3.72 X10^6/uL (3.5-5.4) 04/29/21 04:24 Hgb 10.9 g/dL (12.0-16.0) L 04/29/21 04:24 Hct 31.2 % (36.0-47.0) L 04/29/21 04:24 MCV 84.0 fL (80.0-100.0) 04/29/21 04:24 MCH 29.4 pg (27.0-34.0) 04/29/21 04:24 MCHC 34.9 g/dL (33.0-35.0) 04/29/21 04:24 RDW 13.3 % (11.6-16.5) 04/29/21 04:24 Plt Count 431 X10^3/uL (150.0-450.0) 04/29/21 04:24 MPV 6.7 fL (7.4-11.0) L 04/29/21 04:24 Neut % (Auto) 87.1 % (42.0-75.0) H 04/29/21 04:24 Lymph % (Auto) 8.2 % (21.0-51.0) L 04/29/21 04:24 [place] % (Auto) 4.1 % (0.0-13.0) 04/29/21 04:24 Eos % (Auto) 0.0 % (0.9-2.9) L 04/29/21 04:24 Baso % (Auto) 0.6 % (0.2-1.0) 04/29/21 04:24 Neut # (Auto) 7.2 x10^3/uL (2.2-4.8) H 04/29/21 04:24 Lymph # (Auto) 0.7 X10^3/uL (1.3-2.9) L 04/29/21 04:24 [place] # (Auto) 0.3 x10^3/uL (0.3-0.8) 04/29/21 04:24 Eos # (Auto) 0.0 x10^3/uL (0.0-0.2) 04/29/21 04:24 Baso # (Auto) 0.0 X10^3/uL (0.0-0.1) 04/29/21 04:24 Absolute Nucleated RBC 0.1 /100WBC 04/29/21 04:24 Sample Site Lrad 04/29/21 06:35 ABG pH 7.520 (7.35-7.45) H 04/29/21 06:35 ABG pCO2 36.0 mmHg (35.0-45.0) 04/29/21 06:35 ABG pO2 82.0 mmHg (80.0-100.0) 04/29/21 06:35 ABG HCO3 29.4 mmol/L (22-26) H 04/29/21 06:35 ABG O2 Saturation 97.0 % (90-100) 04/29/21 06:35 ABG Base Excess 6.3 mmol/L (-2.0-2.0) H 04/29/21 06:35 Patrice Test Pos 04/29/21 06:35 A-a Gradient 101.0 mmHg 04/29/21 06:35 FiO2 32.0 04/29/21 06:35 Blood Gas Comments [facility] well ms/mt 04/29/21 06:35 Sodium 136 mmol/L (136-145) 04/29/21 04:24 Corrected Sodium 140 mmol/L (136-145) 04/29/21 04:24 Potassium 3.9 mmol/L (3.5-5.1) 04/29/21 04:24 Chloride 99 mmol/L (98-107) 04/29/21 04:24 Carbon Dioxide 27.1 mmol/L (21-32) 04/29/21 04:24 BUN 10 mg/dL (7-18) 04/29/21 04:24 Creatinine 0.57 mg/dL (0.55-1.02) 04/29/21 04:24 Est GFR (MDRD) Af Amer > 60 (>60) 04/29/21 04:24 Est GFR (MDRD) Non-Af > 60 (>60) 04/29/21 04:24 Glucose 269 mg/dL (65-99) H 04/29/21 04:24 POC Glucose (mg/dL) 216 mg/dL (65-99) H 04/28/21 23:28 Calcium 8.3 mg/dL (8.5-10.1) L 04/29/21 04:24 Corrected Calcium 9.6 mg/dL (8.5-10.1) 04/29/21 04:24 Total Bilirubin 0.40 mg/dL (0.2-1.0) 04/29/21 04:24 AST 21 Units/L (15-37) 04/29/21 04:24 ALT 29 Units/L (12-78) 04/29/21 04:24 Alkaline Phosphatase 61 Units/L (46-116) 04/29/21 04:24 Creatine Kinase 44 Units/L (26-192) 04/28/21 13:22 CK-MB (CK-2) < 1.0 ng/mL (0-4.0) 04/28/21 13:22 CK/CKMB % Calc 2.3 % (<4) 04/28/21 13:22 Troponin I < 0.02 ng/mL (0-1.5) 04/28/21 13:22 C-Reactive Protein 60.00 mg/L (0-3.0) H 04/29/21 04:24 Total Protein 6.0 g/dL (6.4-8.2) L 04/29/21 04:24 Albumin 2.4 g/dL (3.4-5.0) L 04/29/21 04:24 Globulin 3.6 g/dL (2.5-4.5) 04/29/21 04:24 Albumin/Globulin Ratio 0.7 Ratio (1.1-2.1) L 04/29/21 04:24 Specimen Type Clean catch urine 04/28/21 23:16 Urine Color Yellow (YELLOW) 04/28/21 23:16 Urine Appearance Clear (CLEAR) 04/28/21 23:16 Urine pH 6.0 (5.0 - 8.0) 04/28/21 23:16 Ur Specific [place] 1.015 (1.000-1.030) 04/28/21 23:16 Urine Protein 2+ (NEGATIVE) 04/28/21 23:16 Urine Glucose (UA) 3+ (NEGATIVE) 04/28/21 23:16 Urine Ketones 3+ (NEGATIVE) 04/28/21 23:16 Urine Occult Blood 1+ (NEGATIVE) 04/28/21 23:16 Urine Nitrite Negative (NEGATIVE) 04/28/21 23:16 Urine Bilirubin Negative (NEGATIVE) 04/28/21 23:16 Urine Urobilinogen Normal (NORMAL) 04/28/21 23:16 Ur Leukocyte Esterase Negative (NEGATIVE) 04/28/21 23:16 Urine RBC 0-2 /HPF (0-3) 04/28/21 23:16 Urine WBC None seen /HPF (0-5) 04/28/21 23:16 Ur Squamous Epith Cells Rare /HPF (NEGATIVE) 04/28/21 23:16 Urine Bacteria Negative /HPF (NEGATIVE) 04/28/21 23:16 Ur Culture Indicated? No/not indicated 04/28/21 23:16 SARS-CoV-2 (PCR) Positive (NEGATIVE) A 04/28/21 14:42 Influenza Type A (PCR) Negative (NEGATIVE) 04/28/21 14:42 Influenza Type B (PCR) Negative (NEGATIVE) 04/28/21 14:42 RSV (PCR) Negative (NEGATIVE) 04/28/21 14:42 Review of Systems Constitutional: Weakness Eyes: No Symptoms Reported ENT: No Symptoms Reported Respiratory: Cough, Shortness of Breath and SOB with Excertion Cardiovascular: Light Headedness Gastrointestinal: No Symptoms Reported Genitourinary: No Symptoms Reported Musculoskeletal: No Symptoms Reported Skin: No Symptoms Reported Neurological: Incoordination Physical Exam Vital Signs: Temperature 98.4 F Pulse Rate 97 Respiratory Rate 31 Blood Pressure [Left Arm] 165/89 Blood Pressure 153/74 O2 Sat by Pulse Oximetry 91 Oriented: Normal Eyes: Normal Ear: Normal Nose: Normal Throat: Dry Respiratory: Rhonchi Throughout, Rales Throughout and Wheezes Throughout Cardiovascular: Normal Auscultation: Bowel Sounds: Normal Palpation: Normal Tenderness: Normal Skin: Decreased Turgur Musculoskeletal: Normal Psychiatric: Normal Mood Description: Calm Affect: Normal Speech Pattern: Clear and Appropriate Assessment/Plan (1) Acute respiratory failure with hypoxia: Status: Acute (2) 2019 novel coronavirus-infected pneumonia (NCIP): Status: Acute (3) Syncope: Qualifiers: Syncope type: vasovagal syncope Qualified Code(s): R55 - Syncope and collapse Status: Acute (4) Generalized weakness: Status: Acute (5) Diabetes: Qualifiers: Diabetes mellitus complication status: without complication Diabetes mellitus halfway insulin use: without supervisor intermediates use Diabetes mellitus type: type 2 Qualified Code(s): E11.9 - Type 2 diabetes mellitus without complications Status: Acute (6) Hypertension: Qualifiers: Hypertension type: primary hypertension Qualified Code(s): I10 - Essential (primary) hypertension Status: Acute Review H&P Reviewed: Yes Patient was examined?: Yes
--- NOTE | 2021-04-29 16:18 | CT ---
HISTORYRULE OUT PE, COVID +, HYPOXIASTUDYCTA CHESTCOMPARISONChest radiograph from same day.TECHNIQUECTA chest protocol with axial images from the thoracic inlet to upper abdomen with IV contrast. Sagittal and coronal reformats and MIP images were created. Automated exposure control was utilized.FINDINGSThe visualized thyroid gland appears benign. Moderately atherosclerotic normal caliber thoracic aorta. Pulmonary artery is normal in caliber centrally. No filling defect is identified to suggest pulmonary embolism. The heart is normal in size. No pericardial effusion. There is a small hiatal hernia.No pathologic adenopathy in the thorax. No acute osseous abnormality.Visualized upper abdomen has a benign appearance. The trachea and mainstem bronchi appear patent. There are moderate bilateral ground-glass opacities in a pattern typical for COVID 19. No pleural effusion or pneumothorax.IMPRESSIONNegative for PE. Moderate ground-glass opacities in a pattern typical for COVID 19.Electronically signed by: Noah Brian (Apr 29, 2021 16:17:29)
[2021-04-29] MEDS: ZOFRAN INJ 4 MG VIAL IVP PRN (17:59)
[2021-04-29] MEDS ORDERED: ZOCOR TAB 20 MG PO ONE (19:16)
[2021-04-29] MEDS: ZOCOR TAB 20 MG PO SCH (20:54)
[2021-04-29] MEDS: SNACK - Diabetic Appropriate PO SCH (20:55)
[2021-04-30 05:29] LABS: BLOOD UREA NITROGEN 16 mg/dL (7-18); CALCIUM 8.4 mg/dL (8.5-10.1); CARBON DIOXIDE 30.3 mmol/L (21-32); CHLORIDE 99 mmol/L (98-107); COR NA(FOR HYPERGLY) 140 mmol/L (136-145); CREATININE 0.71 mg/dL (0.55-1.02); SODIUM 136 mmol/L (136-145); eGFR NON BLACK RACES > 60 (>60)
[2021-04-30 05:33] LABS: BASOPHILS % (AUTO) 0.1 % (0.2-1.0); HEMATOCRIT 30.9 % (36.0-47.0); HEMOGLOBIN 10.7 g/dL (12.0-16.0); LYMPHOCYTES # (AUTO) 1.5 X10^3/uL (1.3-2.9); LYMPHOCYTES % (AUTO) 13.3 % (21.0-51.0); MEAN CORPUSCULAR HEMOGLOBIN 29.4 pg (27.0-34.0); MEAN CORPUSCULAR HGB CONC 34.6 g/dL (33.0-35.0); MEAN CORPUSCULAR VOLUME 84.9 fL (80.0-100.0); MEAN PLATELET VOLUME 6.9 fL (7.4-11.0); MONOCYTES # (AUTO) 0.9 x10^3/uL (0.3-0.8); MONOCYTES % (AUTO) 7.6 % (0.0-13.0); PLATELET COUNT 521 X10^3/uL (150.0-450.0); RED BLOOD COUNT 3.63 X10^6/uL (3.5-5.4); RED CELL DISTRIBUTION WIDTH 13.1 % (11.6-16.5); WHITE BLOOD COUNT 11.3 X10^3/uL (3.6-10.0)
[2021-04-30] MEDS: ZOSYN VIAL 3.375 GRAMS 3.375 G in NS 100 ML IV + SPIKE MINIBAG* 100 ML IV SCH ×3 (05:41→20:59)
[2021-04-30] MEDS: SYNTHROID 75 mcg TAB PO SCH (05:41)
[2021-04-30] MEDS: SOLU-Medrol 40 MG VIAL IVP SCH ×3 (05:41→20:59)
[2021-04-30] MEDS: CYMBALTA PO SCH (08:14)
[2021-04-30] MEDS: HEMOCYTE-PLUS PO SCH (08:14)
[2021-04-30] MEDS: VITAMIN D3 125 mcg (5,000 UNITS) PO SCH (08:14)
[2021-04-30] MEDS: LOVENOX INJ 30 MG SYR SC SCH ×2 (08:14→20:55)
[2021-04-30] MEDS: PEPCID TAB 40 MG PO SCH ×2 (08:14→20:54)
[2021-04-30] MEDS: ZESTRIL TAB 5 MG PO SCH ×2 (08:15→20:55)
[2021-04-30] MEDS: REMDESIVIR 100 MG in NS 100 ML IV + SPIKE MINIBAG* 120 ML IV SCH (08:15)
[2021-04-30] MEDS: VIBRAMYCIN PO SCH ×2 (08:15→20:54)
[2021-04-30] MEDS: ZINC SULFATE PO SCH ×2 (08:15→20:54)
[2021-04-30] MEDS: VITAMIN A PO SCH (08:15)
[2021-04-30] MEDS: VITAMIN C PO SCH (08:15)
[2021-04-30] MEDS: PULMICORT NEB TX 0.5 MG NEB SCH ×2 (09:23→21:25)
[2021-04-30] MEDS: BROVANA IN SCH ×2 (09:23→21:25)
[2021-04-30] MEDS: NovoLIN R (or HumuLIN R) SUBCUT PRN ×3 (11:21→20:56)
--- NOTE | 2021-04-30 11:31 | PCM.PROG ---
Progress Note Progress Note for Day of Date of Exam: 04/30/21 Subjective Subjective: Patient seen at bedside, overnight patient had to be placed on increased O2 due to low sats in the 80s. Her sensor was adjusted and she was placed back on NC t 4L, she is currently on 3L with sats above 90%. She feels a lot better. She has been coughing a little. She has been eating well. Denies fever or chills. Labs and imaging reviewed CTA: neg for PE, bilateral moderate ground glass opacities Plan: Continue ICU protocol for covid-19. Wean O2 as tolerated to keep sats > 92%. Continue IV Zosyn, Remdesivir, Solumedrol an doxycycline. Continue nebs, IS and pulmicort. Continue vitamin support. PT/OT as tolerated. Continue home medications. Monitor AM labs/imaging. Time spent for clinical assessment, reviewing labs/imaging, physical exam, decision making and documentation greater than 45 mins. Past Medical Family Social History Past Med/Fam/Surg Hx: No changes since H&P Allergies: Allergies No Known Drug Allergies Allergy (Verified 06/08/19 13:47) Review of Systems ROS: No change since H&P Vital Signs and I&O's Vital Signs: Temperature 98.5 F Pulse Rate 80 Respiratory Rate 27 Blood Pressure [Left Arm] 165/89 Blood Pressure 141/61 O2 Sat by Pulse Oximetry 93 Intake and Output: Intake & Output 04/27/21 04/28/21 04/29/21 04/30/21 23:59 23:59 23:59 23:59 Intake Total 404 / 404 779 / 779 390 / 390 Output Total 1500 / 1500 325 / 325 Balance 404 / 404 -721 / -721 65 / 65 Physical Exam Oriented: Normal Eyes: Normal Ear: Normal Nose: Normal Throat: Normal Respiratory: Generalized, Rales and Rhonchi Cardiovascular: Normal Auscultation: Bowel Sounds: Normal Tenderness: Normal Skin: Decreased [place] Musculoskeletal: Normal Psychiatric: Normal Mood Description: Calm Affect: Normal Speech Pattern: Clear and Appropriate Laboratory and Diagnostics Result Diagrams: 04/30/21 04:21 04/30/21 04:21 Labs: Laboratory WBC 11.3 X10^3/uL (3.6-10.0) H 04/30/21 04:21 RBC 3.63 X10^6/uL (3.5-5.4) 04/30/21 04:21 Hgb 10.7 g/dL (12.0-16.0) L 04/30/21 04:21 Hct 30.9 % (36.0-47.0) L 04/30/21 04:21 MCV 84.9 fL (80.0-100.0) 04/30/21 04:21 MCH 29.4 pg (27.0-34.0) 04/30/21 04:21 MCHC 34.6 g/dL (33.0-35.0) 04/30/21 04:21 RDW 13.1 % (11.6-16.5) 04/30/21 04:21 Plt Count 521 X10^3/uL (150.0-450.0) H 04/30/21 04:21 MPV 6.9 fL (7.4-11.0) L 04/30/21 04:21 Neut % (Auto) 79.0 % (42.0-75.0) H 04/30/21 04:21 Lymph % (Auto) 13.3 % (21.0-51.0) L 04/30/21 04:21 [place] % (Auto) 7.6 % (0.0-13.0) 04/30/21 04:21 Eos % (Auto) 0.0 % (0.9-2.9) L 04/30/21 04:21 Baso % (Auto) 0.1 % (0.2-1.0) L 04/30/21 04:21 Neut # (Auto) 9.0 x10^3/uL (2.2-4.8) H 04/30/21 04:21 Lymph # (Auto) 1.5 X10^3/uL (1.3-2.9) 04/30/21 04:21 [place] # (Auto) 0.9 x10^3/uL (0.3-0.8) H 04/30/21 04:21 Eos # (Auto) 0.0 x10^3/uL (0.0-0.2) 04/30/21 04:21 Baso # (Auto) 0.0 X10^3/uL (0.0-0.1) 04/30/21 04:21 Absolute Nucleated RBC 0.0 /100WBC 04/30/21 04:21 Sample Site Lrad 04/29/21 06:35 ABG pH 7.520 (7.35-7.45) H 04/29/21 06:35 ABG pCO2 36.0 mmHg (35.0-45.0) 04/29/21 06:35 ABG pO2 82.0 mmHg (80.0-100.0) 04/29/21 06:35 ABG HCO3 29.4 mmol/L (22-26) H 04/29/21 06:35 ABG O2 Saturation 97.0 % (90-100) 04/29/21 06:35 ABG Base Excess 6.3 mmol/L (-2.0-2.0) H 04/29/21 06:35 Patrice Test Pos 04/29/21 06:35 A-a Gradient 101.0 mmHg 04/29/21 06:35 FiO2 32.0 04/29/21 06:35 Blood Gas Comments Cj well ms/mt 04/29/21 06:35 Sodium 136 mmol/L (136-145) 04/30/21 04:21 Corrected Sodium 140 mmol/L (136-145) 04/30/21 04:21 Potassium 3.7 mmol/L (3.5-5.1) 04/30/21 04:21 Chloride 99 mmol/L (98-107) 04/30/21 04:21 Carbon Dioxide 30.3 mmol/L (21-32) 04/30/21 04:21 BUN 16 mg/dL (7-18) 04/30/21 04:21 Creatinine 0.71 mg/dL (0.55-1.02) 04/30/21 04:21 Est GFR (MDRD) Af Amer > 60 (>60) 04/30/21 04:21 Est GFR (MDRD) Non-Af > 60 (>60) 04/30/21 04:21 Glucose 249 mg/dL (65-99) H 04/30/21 04:21 POC Glucose (mg/dL) 275 mg/dL (65-99) H 04/30/21 11:09 Calcium 8.4 mg/dL (8.5-10.1) L 04/30/21 04:21 Corrected Calcium 9.6 mg/dL (8.5-10.1) 04/29/21 04:24 Total Bilirubin 0.40 mg/dL (0.2-1.0) 04/29/21 04:24 AST 21 Units/L (15-37) 04/29/21 04:24 ALT 29 Units/L (12-78) 04/29/21 04:24 Alkaline Phosphatase 61 Units/L (46-116) 04/29/21 04:24 Creatine Kinase 44 Units/L (26-192) 04/28/21 13:22 CK-MB (CK-2) < 1.0 ng/mL (0-4.0) 04/28/21 13:22 CK/CKMB % Calc 2.3 % (<4) 04/28/21 13:22 Troponin I < 0.02 ng/mL (0-1.5) 04/28/21 13:22 C-Reactive Protein 40.30 mg/L (0-3.0) H 04/30/21 04:21 Total Protein 6.0 g/dL (6.4-8.2) L 04/29/21 04:24 Albumin 2.4 g/dL (3.4-5.0) L 04/29/21 04:24 Globulin 3.6 g/dL (2.5-4.5) 04/29/21 04:24 Albumin/Globulin Ratio 0.7 Ratio (1.1-2.1) L 04/29/21 04:24 Specimen Type Clean catch urine 04/28/21 23:16 Urine Color Yellow (YELLOW) 04/28/21 23:16 Urine Appearance Clear (CLEAR) 04/28/21 23:16 Urine pH 6.0 (5.0 - 8.0) 04/28/21 23:16 Ur Specific [place] 1.015 (1.000-1.030) 04/28/21 23:16 Urine Protein 2+ (NEGATIVE) 04/28/21 23:16 Urine Glucose (UA) 3+ (NEGATIVE) 04/28/21 23:16 Urine Ketones 3+ (NEGATIVE) 04/28/21 23:16 Urine Occult Blood 1+ (NEGATIVE) 04/28/21 23:16 Urine Nitrite Negative (NEGATIVE) 04/28/21 23:16 Urine Bilirubin Negative (NEGATIVE) 04/28/21 23:16 Urine Urobilinogen Normal (NORMAL) 04/28/21 23:16 Ur Leukocyte Esterase Negative (NEGATIVE) 04/28/21 23:16 Urine RBC 0-2 /HPF (0-3) 04/28/21 23:16 Urine WBC None seen /HPF (0-5) 04/28/21 23:16 Ur Squamous Epith Cells Rare /HPF (NEGATIVE) 04/28/21 23:16 Urine Bacteria Negative /HPF (NEGATIVE) 04/28/21 23:16 Ur Culture Indicated? No/not indicated 04/28/21 23:16 SARS-CoV-2 (PCR) Positive (NEGATIVE) A 04/28/21 14:42 Influenza Type A (PCR) Negative (NEGATIVE) 04/28/21 14:42 Influenza Type B (PCR) Negative (NEGATIVE) 04/28/21 14:42 RSV (PCR) Negative (NEGATIVE) 04/28/21 14:42 Plan (1) Acute respiratory failure with hypoxia: Status: Acute (2) 2019 novel coronavirus-infected pneumonia (NCIP): Status: Acute (3) Syncope: Status: Acute Qualifiers: Syncope type: vasovagal syncope Qualified Code(s): R55 - Syncope and collapse (4) Generalized weakness: Status: Acute (5) Diabetes: Status: Acute Qualifiers: Diabetes mellitus complication status: without complication Diabetes mellitus termite exterminator insulin use: without termite exterminator use Diabetes mellitus type: type 2 Qualified Code(s): E11.9 - Type 2 diabetes mellitus without complications (6) Hypertension: Status: Acute Qualifiers: Hypertension type: primary hypertension Qualified Code(s): I10 - Essential (primary) hypertension
[2021-04-30] MEDS: ZOFRAN INJ 4 MG VIAL IVP PRN (15:10)
[2021-04-30] MEDS: ULTRAM PO PRN (15:10)
[2021-04-30] MEDS: SNACK - Diabetic Appropriate PO SCH (20:54)
[2021-04-30] MEDS: ZOCOR TAB 20 MG PO SCH (20:55)
[2021-05-01 05:12] LABS: BASOPHILS % (AUTO) 0.2 % (0.2-1.0); HEMOGLOBIN 10.9 g/dL (12.0-16.0); LYMPHOCYTES # (AUTO) 1.1 X10^3/uL (1.3-2.9); LYMPHOCYTES % (AUTO) 7.5 % (21.0-51.0); MEAN CORPUSCULAR HEMOGLOBIN 28.8 pg (27.0-34.0); MEAN CORPUSCULAR HGB CONC 34.2 g/dL (33.0-35.0); MEAN CORPUSCULAR VOLUME 84.2 fL (80.0-100.0); MONOCYTES # (AUTO) 0.9 x10^3/uL (0.3-0.8); MONOCYTES % (AUTO) 6.2 % (0.0-13.0); NEUTROPHILS # (AUTO) 12.2 x10^3/uL (2.2-4.8); NEUTROPHILS % (AUTO) 86.1 % (42.0-75.0); PLATELET COUNT 512 X10^3/uL (150.0-450.0); RED CELL DISTRIBUTION WIDTH 13.1 % (11.6-16.5); WHITE BLOOD COUNT 14.1 X10^3/uL (3.6-10.0)
[2021-05-01 05:18] LABS: BLOOD UREA NITROGEN 18 mg/dL (7-18); CALCIUM 8.6 mg/dL (8.5-10.1); CARBON DIOXIDE 30.6 mmol/L (21-32); CHLORIDE 99 mmol/L (98-107); COR NA(FOR HYPERGLY) 142 mmol/L (136-145); CREATININE 0.76 mg/dL (0.55-1.02); SODIUM 138 mmol/L (136-145); eGFR NON BLACK RACES > 60 (>60)
[2021-05-01] MEDS: SOLU-Medrol 40 MG VIAL IVP SCH ×3 (05:41→21:31)
[2021-05-01] MEDS: ZOSYN VIAL 3.375 GRAMS 3.375 G in NS 100 ML IV + SPIKE MINIBAG* 100 ML IV SCH ×3 (05:41→21:31)
[2021-05-01] MEDS: SYNTHROID 75 mcg TAB PO SCH (05:41)
[2021-05-01] MEDS: NovoLIN R (or HumuLIN R) SUBCUT PRN ×4 (05:42→20:19)
[2021-05-01] MEDS: CYMBALTA PO SCH (08:01)
[2021-05-01] MEDS: HEMOCYTE-PLUS PO SCH (08:01)
[2021-05-01] MEDS: PEPCID TAB 40 MG PO SCH ×2 (08:02→20:17)
[2021-05-01] MEDS: VITAMIN A PO SCH (08:02)
[2021-05-01] MEDS: REMDESIVIR 100 MG in NS 100 ML IV + SPIKE MINIBAG* 120 ML IV SCH (08:02)
[2021-05-01] MEDS: VIBRAMYCIN PO SCH ×2 (08:02→20:18)
[2021-05-01] MEDS: LOVENOX INJ 30 MG SYR SC SCH ×2 (08:02→20:17)
[2021-05-01] MEDS: ZESTRIL TAB 5 MG PO SCH ×2 (08:03→20:18)
[2021-05-01] MEDS: VITAMIN D3 125 mcg (5,000 UNITS) PO SCH (08:03)
[2021-05-01] MEDS: ZINC SULFATE PO SCH ×2 (08:03→20:18)
[2021-05-01] MEDS: VITAMIN C PO SCH (08:03)
[2021-05-01] MEDS: BROVANA IN SCH ×2 (08:10→21:38)
[2021-05-01] MEDS: PULMICORT NEB TX 0.5 MG NEB SCH ×2 (08:10→21:38)
[2021-05-01] MEDS ORDERED: MILK OF MAGNESIA PO PRN (13:41)
[2021-05-01] MEDS ORDERED: COLACE CAP 100 MG PO PRN (13:41)
--- NOTE | 2021-05-01 18:36 | PCM.PROG ---
Progress Note - Subjective Subjective: Patient is a 75 year old white female who was admitted dueto covid, pneumonia, and hypoxia. Patient is tolerainted oxygen at 4L NC. Patient sitting up in chair.Staff reports patient is hypoxic with exertion. Patient reports improvement. She has been eating well. Denies fever or chills. Labs and imaging reviewed. CTA: neg for PE, bilateral moderate ground glass opacities. Plan: Continue ICU protocol for covid-19. Wean O2 as tolerated to keep sats > 92%. Continue IV Zosyn, Remdesivir, Solumedrol an doxycycline. Continue nebs, IS and pulmicort. Continue vitamin support. PT/OT as tolerated. Continue home medications. Monitor AM labs/imaging. Time spent for clinical assessment, reviewing labs/imaging, physical exam, decision making and documentation greater than 45 mins. - Past Medical Family Social History Past Med/Fam/Surg Hx: No changes since H&P Allergies: Allergies No Known Drug Allergies Allergy (Verified 06/08/19 13:47) - Review of Systems ROS: No change since H&P - Vital Signs and I&O's Vital Signs: Temperature 98.4 F Pulse Rate 74 Respiratory Rate 24 Blood Pressure [Left Arm] 165/89 Blood Pressure 173/84 O2 Sat by Pulse Oximetry 98 Intake and Output: Intake & Output 04/28/21 04/29/21 04/30/21 05/01/21 23:59 23:59 23:59 23:59 Intake Total 404 / 404 779 / 779 1365 / 1365 1291 / 1291 Output Total 1500 / 1500 825 / 825 900 / 900 Balance 404 / 404 -721 / -721 540 / 540 391 / 391 - Physical Exam Oriented: Normal, Time, Person, Place Eyes: Normal Ear: Normal Nose: Normal Throat: Normal Respiratory: Generalized, Rales, Rhonchi Cardiovascular: Normal : Normal Auscultation: Bowel Sounds: Normal Palpation: Normal Tenderness: Normal Skin: Normal Musculoskeletal: Normal, Instability Psychiatric: Normal Mood Description: Calm Affect: Normal Speech Pattern: Clear, Appropriate - Laboratory and Diagnostics Result Diagrams: 05/01/21 04:06 05/01/21 04:06 Labs: Laboratory WBC 14.1 X10^3/uL (3.6-10.0) H 05/01/21 04:06 RBC 3.80 X10^6/uL (3.5-5.4) 05/01/21 04:06 Hgb 10.9 g/dL (12.0-16.0) L 05/01/21 04:06 Hct 32.0 % (36.0-47.0) L 05/01/21 04:06 MCV 84.2 fL (80.0-100.0) 05/01/21 04:06 MCH 28.8 pg (27.0-34.0) 05/01/21 04:06 MCHC 34.2 g/dL (33.0-35.0) 05/01/21 04:06 RDW 13.1 % (11.6-16.5) 05/01/21 04:06 Plt Count 512 X10^3/uL (150.0-450.0) H 05/01/21 04:06 MPV 7.0 fL (7.4-11.0) L 05/01/21 04:06 Neut % (Auto) 86.1 % (42.0-75.0) H 05/01/21 04:06 Lymph % (Auto) 7.5 % (21.0-51.0) L 05/01/21 04:06 [place] % (Auto) 6.2 % (0.0-13.0) 05/01/21 04:06 Eos % (Auto) 0.0 % (0.9-2.9) L 05/01/21 04:06 Baso % (Auto) 0.2 % (0.2-1.0) 05/01/21 04:06 Neut # (Auto) 12.2 x10^3/uL (2.2-4.8) H 05/01/21 04:06 Lymph # (Auto) 1.1 X10^3/uL (1.3-2.9) L 05/01/21 04:06 [place] # (Auto) 0.9 x10^3/uL (0.3-0.8) H 05/01/21 04:06 Eos # (Auto) 0.0 x10^3/uL (0.0-0.2) 05/01/21 04:06 Baso # (Auto) 0.0 X10^3/uL (0.0-0.1) 05/01/21 04:06 Absolute Nucleated RBC 0.1 /100WBC 05/01/21 04:06 Sample Site Lrad 04/29/21 06:35 ABG pH 7.520 (7.35-7.45) H 04/29/21 06:35 ABG pCO2 36.0 mmHg (35.0-45.0) 04/29/21 06:35 ABG pO2 82.0 mmHg (80.0-100.0) 04/29/21 06:35 ABG HCO3 29.4 mmol/L (22-26) H 04/29/21 06:35 ABG O2 Saturation 97.0 % (90-100) 04/29/21 06:35 ABG Base Excess 6.3 mmol/L (-2.0-2.0) H 04/29/21 06:35 Patrice Test Pos 04/29/21 06:35 A-a Gradient 101.0 mmHg 04/29/21 06:35 FiO2 32.0 04/29/21 06:35 Blood Gas Comments Cj well ms/mt 04/29/21 06:35 Sodium 138 mmol/L (136-145) 05/01/21 04:06 Corrected Sodium 142 mmol/L (136-145) 05/01/21 04:06 Potassium 3.5 mmol/L (3.5-5.1) 05/01/21 04:06 Chloride 99 mmol/L (98-107) 05/01/21 04:06 Carbon Dioxide 30.6 mmol/L (21-32) 05/01/21 04:06 BUN 18 mg/dL (7-18) 05/01/21 04:06 Creatinine 0.76 mg/dL (0.55-1.02) 05/01/21 04:06 Est GFR (MDRD) Af Amer > 60 (>60) 05/01/21 04:06 Est GFR (MDRD) Non-Af > 60 (>60) 05/01/21 04:06 Glucose 262 mg/dL (65-99) H 05/01/21 04:06 POC Glucose (mg/dL) 278 mg/dL (65-99) H 05/01/21 16:22 Calcium 8.6 mg/dL (8.5-10.1) 05/01/21 04:06 Corrected Calcium 9.6 mg/dL (8.5-10.1) 04/29/21 04:24 Total Bilirubin 0.40 mg/dL (0.2-1.0) 04/29/21 04:24 AST 21 Units/L (15-37) 04/29/21 04:24 ALT 29 Units/L (12-78) 04/29/21 04:24 Alkaline Phosphatase 61 Units/L (46-116) 04/29/21 04:24 Creatine Kinase 44 Units/L (26-192) 04/28/21 13:22 CK-MB (CK-2) < 1.0 ng/mL (0-4.0) 04/28/21 13:22 CK/CKMB % Calc 2.3 % (<4) 04/28/21 13:22 Troponin I < 0.02 ng/mL (0-1.5) 04/28/21 13:22 C-Reactive Protein 40.30 mg/L (0-3.0) H 04/30/21 04:21 Total Protein 6.0 g/dL (6.4-8.2) L 04/29/21 04:24 Albumin 2.4 g/dL (3.4-5.0) L 04/29/21 04:24 Globulin 3.6 g/dL (2.5-4.5) 04/29/21 04:24 Albumin/Globulin Ratio 0.7 Ratio (1.1-2.1) L 04/29/21 04:24 Specimen Type Clean catch urine 04/28/21 23:16 Urine Color Yellow (YELLOW) 04/28/21 23:16 Urine Appearance Clear (CLEAR) 04/28/21 23:16 Urine pH 6.0 (5.0 - 8.0) 04/28/21 23:16 Ur Specific [place] 1.015 (1.000-1.030) 04/28/21 23:16 Urine Protein 2+ (NEGATIVE) 04/28/21 23:16 Urine Glucose (UA) 3+ (NEGATIVE) 04/28/21 23:16 Urine Ketones 3+ (NEGATIVE) 04/28/21 23:16 Urine Occult Blood 1+ (NEGATIVE) 04/28/21 23:16 Urine Nitrite Negative (NEGATIVE) 04/28/21 23:16 Urine Bilirubin Negative (NEGATIVE) 04/28/21 23:16 Urine Urobilinogen Normal (NORMAL) 04/28/21 23:16 Ur Leukocyte Esterase Negative (NEGATIVE) 04/28/21 23:16 Urine RBC 0-2 /HPF (0-3) 04/28/21 23:16 Urine WBC None seen /HPF (0-5) 04/28/21 23:16 Ur Squamous Epith Cells Rare /HPF (NEGATIVE) 04/28/21 23:16 Urine Bacteria Negative /HPF (NEGATIVE) 04/28/21 23:16 Ur Culture Indicated? No/not indicated 04/28/21 23:16 SARS-CoV-2 (PCR) Positive (NEGATIVE) A 04/28/21 14:42 Influenza Type A (PCR) Negative (NEGATIVE) 04/28/21 14:42 Influenza Type B (PCR) Negative (NEGATIVE) 04/28/21 14:42 RSV (PCR) Negative (NEGATIVE) 04/28/21 14:42 - Plan (1) Acute respiratory failure with hypoxia Status: Acute Plan: supplemental oxygen. Repeat labs ABG CXR. Trend labs, CXR, and ABG. PT. See EMR (2) 2019 novel coronavirus-infected pneumonia (NCIP) Status: Acute (3) Generalized weakness Status: Acute (4) Dyspnea Status: Acute Qualifiers: Dyspnea type: shortness of breath Qualified Code(s): R06.02 - Shortness of breath
[2021-05-01] MEDS: SNACK - Diabetic Appropriate PO SCH (20:16)
[2021-05-01] MEDS: ULTRAM PO PRN (20:18)
[2021-05-01] MEDS: ZOCOR TAB 20 MG PO SCH (20:18)
[2021-05-02 04:41] LABS: ABG BASE EXCESS 8.9 mmol/L (-2.0-2.0)
[2021-05-02 04:42] LABS: ABG ALLEN TEST POS; ABG HCO3 33.5 mmol/L (22-26)
[2021-05-02 04:52] LABS: ALANINE AMINOTRANSFERASE 23 Units/L (12-78); ALBUMIN 2.1 g/dL (3.4-5.0); ALKALINE PHOSPHATASE 50 Units/L (46-116); ASPARTATE AMINO TRANSFERASE 14 Units/L (15-37); BLOOD UREA NITROGEN 15 mg/dL (7-18); CALCIUM 8.1 mg/dL (8.5-10.1); CARBON DIOXIDE 30.3 mmol/L (21-32); CHLORIDE 101 mmol/L (98-107); COR CA(FOR HYPOALB) 9.6 mg/dL (8.5-10.1); COR NA(FOR HYPERGLY) 142 mmol/L (136-145); CREATININE 0.63 mg/dL (0.55-1.02); SODIUM 139 mmol/L (136-145); TOTAL PROTEIN 5.2 g/dL (6.4-8.2); eGFR NON BLACK RACES > 60 (>60)
[2021-05-02 04:59] LABS: BASOPHILS % (AUTO) 0.1 % (0.2-1.0); HEMATOCRIT 32.2 % (36.0-47.0); LYMPHOCYTES # (AUTO) 1.1 X10^3/uL (1.3-2.9); LYMPHOCYTES % (AUTO) 7.7 % (21.0-51.0); MEAN CORPUSCULAR HEMOGLOBIN 28.9 pg (27.0-34.0); MEAN CORPUSCULAR VOLUME 84.9 fL (80.0-100.0); MONOCYTES % (AUTO) 7.2 % (0.0-13.0); NEUTROPHILS # (AUTO) 12.3 x10^3/uL (2.2-4.8); PLATELET COUNT 465 X10^3/uL (150.0-450.0); RED CELL DISTRIBUTION WIDTH 13.2 % (11.6-16.5); WHITE BLOOD COUNT 14.5 X10^3/uL (3.6-10.0)
[2021-05-02] MEDS ORDERED: KLOR-CON PO PRN (05:08)
[2021-05-02] MEDS ORDERED: K-RIDER 10 MEQ/NS 100 ML 10 MEQ/100 ML BAG IV PRN (05:08)
[2021-05-02] MEDS ORDERED: POTASSIUM CHLORIDE LIQ 20 MEQ UDC PO PRN (05:08)
[2021-05-02] MEDS ORDERED: POTASSIUM CHL 40 MEQ/NS 0.45% 500 ML IV PRN (05:08)
[2021-05-02] MEDS ORDERED: MAGNESIUM SULFATE 1 GRAM/100 mL PREMIX 1 G/100 ML BAG IV PRN (05:08)
[2021-05-02] MEDS ORDERED: MICRO K EXTEN CAP 10 MEQ PO PRN (05:08)
[2021-05-02] MEDS ORDERED: K-DUR TAB 20 MEQ PO PRN (05:08)
[2021-05-02] MEDS ORDERED: POTASSIUM CHL 60 MEQ/NS 0.45% 500 ML IV PRN (05:08)
[2021-05-02 05:36] LABS: BAND NEUTROPHILS % 2 % (0-10); PLATELET MORPHOLOGY COMMENT NORMAL (NORMAL)
[2021-05-02] MEDS: ZOSYN VIAL 3.375 GRAMS 3.375 G in NS 100 ML IV + SPIKE MINIBAG* 100 ML IV SCH ×3 (05:54→21:09)
[2021-05-02] MEDS: SOLU-Medrol 40 MG VIAL IVP SCH ×3 (05:55→21:13)
[2021-05-02] MEDS: SYNTHROID 75 mcg TAB PO SCH (05:55)
[2021-05-02] MEDS: NovoLIN R (or HumuLIN R) SUBCUT PRN ×4 (05:55→21:18)
[2021-05-02] MEDS ORDERED: K-DUR TAB 20 MEQ PO ONE (05:58)
--- NOTE | 2021-05-02 07:05 | RAD ---
HISTORYHYPOXIA, COVID+STUDYCHEST, 1 [id number]/04/2021.TECHNIQUEAP view of the chestFINDINGSCardiac and mediastinal contours are within normal limits. No significant change in peripheral and basilar distribution of hazy airspace opacities. No definite pleural effusion or pneumothorax.IMPRESSIONNo significant change.Electronically signed by: Noah Brian (May 02, 2021 07:04:54)
[2021-05-02] MEDS: CYMBALTA PO SCH (08:13)
[2021-05-02] MEDS: HEMOCYTE-PLUS PO SCH (08:14)
[2021-05-02] MEDS: PEPCID TAB 40 MG PO SCH ×2 (08:14→21:11)
[2021-05-02] MEDS: REMDESIVIR 100 MG in NS 100 ML IV + SPIKE MINIBAG* 120 ML IV SCH (08:14)
[2021-05-02] MEDS: LOVENOX INJ 30 MG SYR SC SCH ×2 (08:14→21:13)
[2021-05-02] MEDS: VITAMIN A PO SCH (08:15)
[2021-05-02] MEDS: VIBRAMYCIN PO SCH (08:15)
[2021-05-02] MEDS: VITAMIN C PO SCH (08:15)
[2021-05-02] MEDS: ZINC SULFATE PO SCH ×2 (08:16→21:11)
[2021-05-02] MEDS: ZESTRIL TAB 5 MG PO SCH ×2 (08:16→21:10)
[2021-05-02] MEDS: VITAMIN D3 125 mcg (5,000 UNITS) PO SCH (08:16)
[2021-05-02] MEDS ORDERED: GLUCOPHAGE ONE ×2 (09:05→20:18)
[2021-05-02] MEDS: GLUCOPHAGE PO SCH ×2 (09:06→21:11)
[2021-05-02] MEDS: BROVANA IN SCH ×2 (10:08→20:38)
[2021-05-02] MEDS: PULMICORT NEB TX 0.5 MG NEB SCH ×2 (10:08→20:38)
--- NOTE | 2021-05-02 18:18 | PCM.PROG ---
Progress Note - Subjective Subjective: Patient is a 75 year old white female who was admitted due to covid, pneumonia, and hypoxia. Patient is tolerating oxygen at 4L NC. Patient sitting up in chair. Patient continues to have hypoxic episodes with exertion. However no major changes from previous. Patient reports improvement. She has been eating well. Denies fever or chills. - Past Medical Family Social History Past Med/Fam/Surg Hx: No changes since H&P Allergies: Allergies No Known Drug Allergies Allergy (Verified 06/08/19 13:47) - Review of Systems ROS: No change since H&P - Vital Signs and I&O's Vital Signs: Temperature 97.8 F Pulse Rate 97 Respiratory Rate 33 Blood Pressure [Left Arm] 165/89 Blood Pressure 137/68 O2 Sat by Pulse Oximetry 92 Intake and Output: Intake & Output 04/29/21 04/30/21 05/01/21 05/02/21 23:59 23:59 23:59 23:59 Intake Total 779 / 779 1365 / 1365 1709 / 1709 1053 / 1053 Output Total 1500 / 1500 825 / 825 1625 / 1625 1000 / 1000 Balance -721 / -721 540 / 540 84 / 84 53 / 53 - Physical Exam Oriented: Normal, Time, Person, Place Eyes: Normal Ear: Normal Nose: Normal Throat: Normal Respiratory: Generalized, Rales, Rhonchi Cardiovascular: Normal : Normal Auscultation: Bowel Sounds: Normal Palpation: Normal Tenderness: Normal Skin: Normal Musculoskeletal: Normal, Instability Psychiatric: Normal Mood Description: Calm Affect: Normal Speech Pattern: Clear, Appropriate - Laboratory and Diagnostics Result Diagrams: 05/02/21 03:56 05/02/21 07:45 Labs: Laboratory WBC 14.5 X10^3/uL (3.6-10.0) H 05/02/21 03:56 RBC 3.80 X10^6/uL (3.5-5.4) 05/02/21 03:56 Hgb 11.0 g/dL (12.0-16.0) L 05/02/21 03:56 Hct 32.2 % (36.0-47.0) L 05/02/21 03:56 MCV 84.9 fL (80.0-100.0) 05/02/21 03:56 MCH 28.9 pg (27.0-34.0) 05/02/21 03:56 MCHC 34.0 g/dL (33.0-35.0) 05/02/21 03:56 RDW 13.2 % (11.6-16.5) 05/02/21 03:56 Plt Count 465 X10^3/uL (150.0-450.0) H 05/02/21 03:56 Plt Count Comment Increased (ADEQUATE) A 05/02/21 03:56 MPV 7.0 fL (7.4-11.0) L 05/02/21 03:56 Neut % (Auto) 85.0 % (42.0-75.0) H 05/02/21 03:56 Lymph % (Auto) 7.7 % (21.0-51.0) L 05/02/21 03:56 [place] % (Auto) 7.2 % (0.0-13.0) 05/02/21 03:56 Eos % (Auto) 0.0 % (0.9-2.9) L 05/02/21 03:56 Baso % (Auto) 0.1 % (0.2-1.0) L 05/02/21 03:56 Neut # (Auto) 12.3 x10^3/uL (2.2-4.8) H 05/02/21 03:56 Lymph # (Auto) 1.1 X10^3/uL (1.3-2.9) L 05/02/21 03:56 [place] # (Auto) 1.0 x10^3/uL (0.3-0.8) H 05/02/21 03:56 Eos # (Auto) 0.0 x10^3/uL (0.0-0.2) 05/02/21 03:56 Baso # (Auto) 0.0 X10^3/uL (0.0-0.1) 05/02/21 03:56 Absolute Nucleated RBC 0.2 /100WBC 05/02/21 03:56 Total Counted 100 05/02/21 03:56 Neutrophils % (Manual) 82 % (39-76) H 05/02/21 03:56 Band Neutrophils % 2 % (0-10) 05/02/21 03:56 Lymphocytes % (Manual) 9 % (13-43) L 05/02/21 03:56 Monocytes % (Manual) 7 % (4-9) 05/02/21 03:56 Plt Morphology Comment Normal (NORMAL) 05/02/21 03:56 RBC Morphology Normal (NORMAL) 05/02/21 03:56 Sample Site Lr 05/02/21 04:35 ABG pH 7.480 (7.35-7.45) H 05/02/21 04:35 ABG pCO2 45.0 mmHg (35.0-45.0) 05/02/21 04:35 ABG pO2 57.0 mmHg (80.0-100.0) L 05/02/21 04:35 ABG HCO3 33.5 mmol/L (22-26) H* 05/02/21 04:35 ABG O2 Saturation 91.0 % (90-100) 05/02/21 04:35 ABG Base Excess 8.9 mmol/L (-2.0-2.0) H 05/02/21 04:35 Patrice Test Pos 05/02/21 04:35 A-a Gradient 143.0 mmHg 05/02/21 04:35 FiO2 36.0 05/02/21 04:35 Blood Gas Comments Cj well ae 05/02/21 04:35 Sodium 139 mmol/L (136-145) 05/02/21 03:56 Corrected Sodium 142 mmol/L (136-145) 05/02/21 03:56 Potassium 3.6 mmol/L (3.5-5.1) 05/02/21 07:45 Chloride 101 mmol/L (98-107) 05/02/21 03:56 Carbon Dioxide 30.3 mmol/L (21-32) 05/02/21 03:56 BUN 15 mg/dL (7-18) 05/02/21 03:56 Creatinine 0.63 mg/dL (0.55-1.02) 05/02/21 03:56 Est GFR (MDRD) Af Amer > 60 (>60) 05/02/21 03:56 Est GFR (MDRD) Non-Af > 60 (>60) 05/02/21 03:56 Glucose 233 mg/dL (65-99) H 05/02/21 03:56 POC Glucose (mg/dL) 293 mg/dL (65-99) H 05/02/21 16:21 Calcium 8.1 mg/dL (8.5-10.1) L 05/02/21 03:56 Corrected Calcium 9.6 mg/dL (8.5-10.1) 05/02/21 03:56 Magnesium 2.2 mg/dL (1.7-2.9) 05/02/21 04:30 Total Bilirubin 0.40 mg/dL (0.2-1.0) 05/02/21 03:56 AST 14 Units/L (15-37) L 05/02/21 03:56 ALT 23 Units/L (12-78) 05/02/21 03:56 Alkaline Phosphatase 50 Units/L (46-116) 05/02/21 03:56 Creatine Kinase 44 Units/L (26-192) 04/28/21 13:22 CK-MB (CK-2) < 1.0 ng/mL (0-4.0) 04/28/21 13:22 CK/CKMB % Calc 2.3 % (<4) 04/28/21 13:22 Troponin I < 0.02 ng/mL (0-1.5) 04/28/21 13:22 C-Reactive Protein 40.30 mg/L (0-3.0) H 04/30/21 04:21 Total Protein 5.2 g/dL (6.4-8.2) L 05/02/21 03:56 Albumin 2.1 g/dL (3.4-5.0) L 05/02/21 03:56 Globulin 3.1 g/dL (2.5-4.5) 05/02/21 03:56 Albumin/Globulin Ratio 0.7 Ratio (1.1-2.1) L 05/02/21 03:56 Specimen Type Clean catch urine 04/28/21 23:16 Urine Color Yellow (YELLOW) 04/28/21 23:16 Urine Appearance Clear (CLEAR) 04/28/21 23:16 Urine pH 6.0 (5.0 - 8.0) 04/28/21 23:16 Ur Specific [place] 1.015 (1.000-1.030) 04/28/21 23:16 Urine Protein 2+ (NEGATIVE) 04/28/21 23:16 Urine Glucose (UA) 3+ (NEGATIVE) 04/28/21 23:16 Urine Ketones 3+ (NEGATIVE) 04/28/21 23:16 Urine Occult Blood 1+ (NEGATIVE) 04/28/21 23:16 Urine Nitrite Negative (NEGATIVE) 04/28/21 23:16 Urine Bilirubin Negative (NEGATIVE) 04/28/21 23:16 Urine Urobilinogen Normal (NORMAL) 04/28/21 23:16 Ur Leukocyte Esterase Negative (NEGATIVE) 04/28/21 23:16 Urine RBC 0-2 /HPF (0-3) 04/28/21 23:16 Urine WBC None seen /HPF (0-5) 04/28/21 23:16 Ur Squamous Epith Cells Rare /HPF (NEGATIVE) 04/28/21 23:16 Urine Bacteria Negative /HPF (NEGATIVE) 04/28/21 23:16 Ur Culture Indicated? No/not indicated 04/28/21 23:16 SARS-CoV-2 (PCR) Positive (NEGATIVE) A 04/28/21 14:42 Influenza Type A (PCR) Negative (NEGATIVE) 04/28/21 14:42 Influenza Type B (PCR) Negative (NEGATIVE) 04/28/21 14:42 RSV (PCR) Negative (NEGATIVE) 04/28/21 14:42 - Plan (1) Acute respiratory failure with hypoxia Status: Acute Plan: supplemental oxygen. Repeat labs ABG CXR. Trend labs, CXR, and ABG. PT. See EMR (2) 2019 novel coronavirus-infected pneumonia (NCIP) Status: Acute (3) Generalized weakness Status: Acute (4) Dyspnea Status: Acute Qualifiers: Dyspnea type: shortness of breath Qualified Code(s): R06.02 - Shortness of breath
[2021-05-02 18:53] LABS: ABG BASE EXCESS 4.6 mmol/L (-2.0-2.0); ABG HCO3 28.3 mmol/L (22-26)
[2021-05-02 18:54] LABS: ABG ALLEN TEST POS
[2021-05-02] MEDS ORDERED: NS 500 ML IV 500 ML IV ONE (20:23)
[2021-05-02] MEDS: ZITHROMAX TAB 250 MG PO SCH (21:10)
[2021-05-02] MEDS: ZOCOR TAB 20 MG PO SCH (21:10)
[2021-05-02] MEDS: SNACK - Diabetic Appropriate PO SCH (21:12)
[2021-05-03 04:58] LABS: BASOPHILS # (AUTO) 0.1 X10^3/uL (0.0-0.1); BASOPHILS % (AUTO) 0.4 % (0.2-1.0); HEMATOCRIT 32.6 % (36.0-47.0); HEMOGLOBIN 11.2 g/dL (12.0-16.0); LYMPHOCYTES # (AUTO) 1.3 X10^3/uL (1.3-2.9); LYMPHOCYTES % (AUTO) 9.1 % (21.0-51.0); MEAN CORPUSCULAR HGB CONC 34.5 g/dL (33.0-35.0); MEAN CORPUSCULAR VOLUME 84.2 fL (80.0-100.0); MONOCYTES % (AUTO) 7.2 % (0.0-13.0); NEUTROPHILS # (AUTO) 11.5 x10^3/uL (2.2-4.8); NEUTROPHILS % (AUTO) 83.3 % (42.0-75.0); PLATELET COUNT 455 X10^3/uL (150.0-450.0); RED BLOOD COUNT 3.87 X10^6/uL (3.5-5.4); RED CELL DISTRIBUTION WIDTH 13.5 % (11.6-16.5); WHITE BLOOD COUNT 13.8 X10^3/uL (3.6-10.0)
[2021-05-03 05:21] LABS: ALANINE AMINOTRANSFERASE 20 Units/L (12-78); ALBUMIN 2.1 g/dL (3.4-5.0); ALKALINE PHOSPHATASE 47 Units/L (46-116); ASPARTATE AMINO TRANSFERASE 13 Units/L (15-37); BLOOD UREA NITROGEN 18 mg/dL (7-18); CALCIUM 8.2 mg/dL (8.5-10.1); CARBON DIOXIDE 29.3 mmol/L (21-32); CHLORIDE 101 mmol/L (98-107); COR CA(FOR HYPOALB) 9.7 mg/dL (8.5-10.1); COR NA(FOR HYPERGLY) 138 mmol/L (136-145); CREATININE 0.64 mg/dL (0.55-1.02); SODIUM 134 mmol/L (136-145); TOTAL PROTEIN 5.1 g/dL (6.4-8.2); eGFR NON BLACK RACES > 60 (>60)
[2021-05-03 05:36] LABS: PLATELET MORPHOLOGY COMMENT NORMAL (NORMAL)
[2021-05-03] MEDS: ZOSYN VIAL 3.375 GRAMS 3.375 G in NS 100 ML IV + SPIKE MINIBAG* 100 ML IV SCH ×3 (05:43→21:39)
[2021-05-03] MEDS: SOLU-Medrol 40 MG VIAL IVP SCH ×3 (05:43→21:39)
[2021-05-03] MEDS: SYNTHROID 75 mcg TAB PO SCH (05:43)
[2021-05-03] MEDS: NovoLIN R (or HumuLIN R) SUBCUT PRN ×4 (05:57→21:00)
--- NOTE | 2021-05-03 07:15 | RAD ---
HISTORYCOVID+, HYPOXIASTUDYCHEST, 1 [id number]/07/2021.TECHNIQUEAP view of the chestFINDINGSCardiac and mediastinal contours are within normal limits. No significant change in bilateral airspace opacities worst in the lower lungs. No definite pleural effusion or pneumothorax.IMPRESSIONNo significant change.Electronically signed by: Noah Brian (May 03, 2021 07:13:38)
[2021-05-03] MEDS ORDERED: GLUCOPHAGE ONE ×2 (08:39→20:19)
[2021-05-03] MEDS: CYMBALTA PO SCH (08:44)
[2021-05-03] MEDS: GLUCOPHAGE PO SCH ×2 (08:45→20:35)
[2021-05-03] MEDS: LOVENOX INJ 30 MG SYR SC SCH ×2 (08:45→21:38)
[2021-05-03] MEDS: HEMOCYTE-PLUS PO SCH (08:45)
[2021-05-03] MEDS: PEPCID TAB 40 MG PO SCH ×2 (08:46→20:35)
[2021-05-03] MEDS: VITAMIN C PO SCH (08:46)
[2021-05-03] MEDS: VITAMIN A PO SCH (08:46)
[2021-05-03] MEDS: ZINC SULFATE PO SCH ×2 (08:47→20:36)
[2021-05-03] MEDS: ZITHROMAX TAB 250 MG PO SCH (08:47)
[2021-05-03] MEDS: VITAMIN D3 125 mcg (5,000 UNITS) PO SCH (08:47)
[2021-05-03] MEDS: ZESTRIL TAB 5 MG PO SCH ×2 (08:47→20:35)
[2021-05-03] MEDS: PULMICORT NEB TX 0.5 MG NEB SCH ×2 (09:20→20:25)
[2021-05-03] MEDS: BROVANA IN SCH ×2 (09:20→20:25)
--- NOTE | 2021-05-03 20:24 | PCM.PROG ---
Progress Note - Subjective Subjective: Patient is a 75 year old white female who was admitted due to covid, pneumonia, and hypoxia. Patient is tolerating oxygen at 4L NC. Patient sitting up in chair. Patient continues to have hypoxic episodes with exertion. However no major changes from previous. Patient reports improvement. She has been eating well. Denies fever or chills. Discharge pending; not stable for discharge at this time. - Past Medical Family Social History Past Med/Fam/Surg Hx: No changes since H&P Allergies: Allergies No Known Drug Allergies Allergy (Verified 06/08/19 13:47) - Review of Systems ROS: No change since H&P - Vital Signs and I&O's Vital Signs: Temperature 98.2 F Pulse Rate 89 Respiratory Rate 23 Blood Pressure [Left Arm] 165/89 Blood Pressure 153/77 O2 Sat by Pulse Oximetry 93 Intake and Output: Intake & Output 04/30/21 05/01/21 05/02/21 05/03/21 23:59 23:59 23:59 23:59 Intake Total 1365 / 1365 1709 / 1709 1398 / 1398 699 / 699 Output Total 825 / 825 1625 / 1625 1275 / 1275 900 / 900 Balance 540 / 540 84 / 84 123 / 123 -201 / -201 - Physical Exam Oriented: Normal, Time, Person, Place Eyes: Normal Ear: Normal Nose: Normal Throat: Normal Respiratory: Generalized, Rales, Rhonchi Cardiovascular: Normal : Normal Auscultation: Bowel Sounds: Normal Palpation: Normal Tenderness: Normal Skin: Normal Musculoskeletal: Normal, Instability Psychiatric: Normal Mood Description: Calm Affect: Normal Speech Pattern: Clear, Appropriate - Laboratory and Diagnostics Result Diagrams: 05/03/21 04:23 05/03/21 04:23 Labs: Laboratory WBC 13.8 X10^3/uL (3.6-10.0) H 05/03/21 04:23 RBC 3.87 X10^6/uL (3.5-5.4) 05/03/21 04:23 Hgb 11.2 g/dL (12.0-16.0) L 05/03/21 04:23 Hct 32.6 % (36.0-47.0) L 05/03/21 04:23 MCV 84.2 fL (80.0-100.0) 05/03/21 04:23 MCH 29.0 pg (27.0-34.0) 05/03/21 04:23 MCHC 34.5 g/dL (33.0-35.0) 05/03/21 04:23 RDW 13.5 % (11.6-16.5) 05/03/21 04:23 Plt Count 455 X10^3/uL (150.0-450.0) H 05/03/21 04:23 Plt Count Comment Increased (ADEQUATE) A 05/03/21 04:23 MPV 7.0 fL (7.4-11.0) L 05/03/21 04:23 Neut % (Auto) 83.3 % (42.0-75.0) H 05/03/21 04:23 Lymph % (Auto) 9.1 % (21.0-51.0) L 05/03/21 04:23 [place] % (Auto) 7.2 % (0.0-13.0) 05/03/21 04:23 Eos % (Auto) 0.0 % (0.9-2.9) L 05/03/21 04:23 Baso % (Auto) 0.4 % (0.2-1.0) 05/03/21 04:23 Neut # (Auto) 11.5 x10^3/uL (2.2-4.8) H 05/03/21 04:23 Lymph # (Auto) 1.3 X10^3/uL (1.3-2.9) 05/03/21 04:23 [place] # (Auto) 1.0 x10^3/uL (0.3-0.8) H 05/03/21 04:23 Eos # (Auto) 0.0 x10^3/uL (0.0-0.2) 05/03/21 04:23 Baso # (Auto) 0.1 X10^3/uL (0.0-0.1) 05/03/21 04:23 Absolute Nucleated RBC 0.0 /100WBC 05/03/21 04:23 Total Counted 100 05/03/21 04:23 Neutrophils % (Manual) 80 % (39-76) H 05/03/21 04:23 Band Neutrophils % 2 % (0-10) 05/02/21 03:56 Lymphocytes % (Manual) 14 % (13-43) 05/03/21 04:23 Monocytes % (Manual) 6 % (4-9) 05/03/21 04:23 Plt Morphology Comment Normal (NORMAL) 05/03/21 04:23 RBC Morphology Normal (NORMAL) 05/03/21 04:23 Sample Site Rra 05/02/21 18:49 ABG pH 7.480 (7.35-7.45) H 05/02/21 18:49 ABG pCO2 38.0 mmHg (35.0-45.0) 05/02/21 18:49 ABG pO2 48.0 mmHg (80.0-100.0) L* 05/02/21 18:49 ABG HCO3 28.3 mmol/L (22-26) H 05/02/21 18:49 ABG O2 Saturation 87.0 % (90-100) L 05/02/21 18:49 ABG Base Excess 4.6 mmol/L (-2.0-2.0) H 05/02/21 18:49 Patrice Test Pos 05/02/21 18:49 A-a Gradient 54.0 mmHg 05/02/21 18:49 FiO2 21.0 05/02/21 18:49 Blood Gas Comments Pt nigel well eb 05/02/21 18:49 Sodium 134 mmol/L (136-145) L 05/03/21 04:23 Corrected Sodium 138 mmol/L (136-145) 05/03/21 04:23 Potassium 3.9 mmol/L (3.5-5.1) 05/03/21 04:23 Chloride 101 mmol/L (98-107) 05/03/21 04:23 Carbon Dioxide 29.3 mmol/L (21-32) 05/03/21 04:23 BUN 18 mg/dL (7-18) 05/03/21 04:23 Creatinine 0.64 mg/dL (0.55-1.02) 05/03/21 04:23 Est GFR (MDRD) Af Amer > 60 (>60) 05/03/21 04:23 Est GFR (MDRD) Non-Af > 60 (>60) 05/03/21 04:23 Glucose 252 mg/dL (65-99) H 05/03/21 04:23 POC Glucose (mg/dL) 347 mg/dL (65-99) H 05/03/21 19:57 Calcium 8.2 mg/dL (8.5-10.1) L 05/03/21 04:23 Corrected Calcium 9.7 mg/dL (8.5-10.1) 05/03/21 04:23 Magnesium 2.2 mg/dL (1.7-2.9) 05/02/21 04:30 Total Bilirubin 0.40 mg/dL (0.2-1.0) 05/03/21 04:23 AST 13 Units/L (15-37) L 05/03/21 04:23 ALT 20 Units/L (12-78) 05/03/21 04:23 Alkaline Phosphatase 47 Units/L (46-116) 05/03/21 04:23 Creatine Kinase 44 Units/L (26-192) 04/28/21 13:22 CK-MB (CK-2) < 1.0 ng/mL (0-4.0) 04/28/21 13:22 CK/CKMB % Calc 2.3 % (<4) 04/28/21 13:22 Troponin I < 0.02 ng/mL (0-1.5) 04/28/21 13:22 C-Reactive Protein 40.30 mg/L (0-3.0) H 04/30/21 04:21 Total Protein 5.1 g/dL (6.4-8.2) L 05/03/21 04:23 Albumin 2.1 g/dL (3.4-5.0) L 05/03/21 04:23 Globulin 3.0 g/dL (2.5-4.5) 05/03/21 04:23 Albumin/Globulin Ratio 0.7 Ratio (1.1-2.1) L 05/03/21 04:23 Specimen Type Clean catch urine 04/28/21 23:16 Urine Color Yellow (YELLOW) 04/28/21 23:16 Urine Appearance Clear (CLEAR) 04/28/21 23:16 Urine pH 6.0 (5.0 - 8.0) 04/28/21 23:16 Ur Specific [place] 1.015 (1.000-1.030) 04/28/21 23:16 Urine Protein 2+ (NEGATIVE) 04/28/21 23:16 Urine Glucose (UA) 3+ (NEGATIVE) 04/28/21 23:16 Urine Ketones 3+ (NEGATIVE) 04/28/21 23:16 Urine Occult Blood 1+ (NEGATIVE) 04/28/21 23:16 Urine Nitrite Negative (NEGATIVE) 04/28/21 23:16 Urine Bilirubin Negative (NEGATIVE) 04/28/21 23:16 Urine Urobilinogen Normal (NORMAL) 04/28/21 23:16 Ur Leukocyte Esterase Negative (NEGATIVE) 04/28/21 23:16 Urine RBC 0-2 /HPF (0-3) 04/28/21 23:16 Urine WBC None seen /HPF (0-5) 04/28/21 23:16 Ur Squamous Epith Cells Rare /HPF (NEGATIVE) 04/28/21 23:16 Urine Bacteria Negative /HPF (NEGATIVE) 04/28/21 23:16 Ur Culture Indicated? No/not indicated 04/28/21 23:16 SARS-CoV-2 (PCR) Positive (NEGATIVE) A 04/28/21 14:42 Influenza Type A (PCR) Negative (NEGATIVE) 04/28/21 14:42 Influenza Type B (PCR) Negative (NEGATIVE) 04/28/21 14:42 RSV (PCR) Negative (NEGATIVE) 04/28/21 14:42 - Plan (1) Acute respiratory failure with hypoxia Status: Acute Plan: supplemental oxygen. Repeat labs ABG CXR. Trend labs, CXR, and ABG. PT. See EMR (2) 2019 novel coronavirus-infected pneumonia (NCIP) Status: Acute (3) Generalized weakness Status: Acute (4) Dyspnea Status: Acute Qualifiers: Dyspnea type: shortness of breath Qualified Code(s): R06.02 - Shortness of breath
[2021-05-03] MEDS: ZOCOR TAB 20 MG PO SCH (20:35)
[2021-05-03] MEDS: SNACK - Diabetic Appropriate PO SCH (20:36)
[2021-05-04 05:49] LABS: ABG BASE EXCESS 9.5 mmol/L (-2.0-2.0)
[2021-05-04 05:50] LABS: ABG HCO3 33.5 mmol/L (22-26)
[2021-05-04] MEDS: SOLU-Medrol 40 MG VIAL IVP SCH ×3 (05:53→21:23)
[2021-05-04] MEDS: ZOSYN VIAL 3.375 GRAMS 3.375 G in NS 100 ML IV + SPIKE MINIBAG* 100 ML IV SCH ×3 (05:54→21:23)
[2021-05-04] MEDS: SYNTHROID 75 mcg TAB PO SCH (05:54)
[2021-05-04] MEDS: NovoLIN R (or HumuLIN R) SUBCUT PRN ×4 (06:04→20:53)
--- NOTE | 2021-05-04 06:34 | RAD ---
HISTORYCOVID+STUDYCHEST, 1 [id number]/08/2021.TECHNIQUEAP view of the chestFINDINGSCardiac and mediastinal contours are within normal limits. No significant change in bilateral lower lung predominant airspace and interstitial opacities. No definite pleural effusion or pneumothorax.IMPRESSIONNo significant change.Electronically signed by: Noah Brian (May 04, 2021 06:32:58)
[2021-05-04] MEDS ORDERED: GLUCOPHAGE ONE ×2 (09:10→18:57)
[2021-05-04] MEDS: CYMBALTA PO SCH (09:22)
[2021-05-04] MEDS: VITAMIN A PO SCH (09:23)
[2021-05-04] MEDS: PEPCID TAB 40 MG PO SCH ×2 (09:23→20:40)
[2021-05-04] MEDS: VITAMIN C PO SCH (09:23)
[2021-05-04] MEDS: GLUCOPHAGE PO SCH ×2 (09:23→20:39)
[2021-05-04] MEDS: LOVENOX INJ 30 MG SYR SC SCH ×2 (09:23→20:39)
[2021-05-04] MEDS: HEMOCYTE-PLUS PO SCH (09:23)
[2021-05-04] MEDS: VITAMIN D3 125 mcg (5,000 UNITS) PO SCH (09:24)
[2021-05-04] MEDS: ZITHROMAX TAB 250 MG PO SCH (09:24)
[2021-05-04] MEDS: ZINC SULFATE PO SCH ×2 (09:24→20:39)
[2021-05-04] MEDS: ZESTRIL TAB 5 MG PO SCH ×2 (09:24→20:40)
[2021-05-04] MEDS: BROVANA IN SCH ×2 (09:40→21:26)
[2021-05-04] MEDS: PULMICORT NEB TX 0.5 MG NEB SCH ×2 (09:40→21:26)
[2021-05-04 14:51] LABS: ALANINE AMINOTRANSFERASE 23 Units/L (12-78); ALBUMIN 2.5 g/dL (3.4-5.0); ALKALINE PHOSPHATASE 59 Units/L (46-116); ASPARTATE AMINO TRANSFERASE 13 Units/L (15-37); BLOOD UREA NITROGEN 18 mg/dL (7-18); CALCIUM 8.5 mg/dL (8.5-10.1); CARBON DIOXIDE 30.7 mmol/L (21-32); CHLORIDE 100 mmol/L (98-107); COR CA(FOR HYPOALB) 9.7 mg/dL (8.5-10.1); COR NA(FOR HYPERGLY) 141 mmol/L (136-145); CREATININE 0.91 mg/dL (0.55-1.02); SODIUM 137 mmol/L (136-145); TOTAL PROTEIN 5.8 g/dL (6.4-8.2); eGFR NON BLACK RACES > 60 (>60)
[2021-05-04 14:53] LABS: BASOPHILS % (AUTO) 0.2 % (0.2-1.0); HEMATOCRIT 38.2 % (36.0-47.0); HEMOGLOBIN 12.5 g/dL (12.0-16.0); LYMPHOCYTES # (AUTO) 1.3 X10^3/uL (1.3-2.9); LYMPHOCYTES % (AUTO) 8.4 % (21.0-51.0); MEAN CORPUSCULAR HEMOGLOBIN 28.1 pg (27.0-34.0); MEAN CORPUSCULAR HGB CONC 32.8 g/dL (33.0-35.0); MEAN CORPUSCULAR VOLUME 85.9 fL (80.0-100.0); MEAN PLATELET VOLUME 7.4 fL (7.4-11.0); MONOCYTES # (AUTO) 1.5 x10^3/uL (0.3-0.8); MONOCYTES % (AUTO) 9.9 % (0.0-13.0); NEUTROPHILS # (AUTO) 12.2 x10^3/uL (2.2-4.8); NEUTROPHILS % (AUTO) 81.5 % (42.0-75.0); PLATELET COUNT 462 X10^3/uL (150.0-450.0); RED BLOOD COUNT 4.45 X10^6/uL (3.5-5.4); RED CELL DISTRIBUTION WIDTH 13.5 % (11.6-16.5); WHITE BLOOD COUNT 14.9 X10^3/uL (3.6-10.0)
[2021-05-04 15:39] LABS: PLATELET MORPHOLOGY COMMENT NORMAL (NORMAL)
--- NOTE | 2021-05-04 17:49 | PCM.PROG ---
Progress Note - Subjective Subjective: Patient is a 75 year old white female who was admitted due to covid, pneumonia, and hypoxia. Patient is tolerating oxygen at 4L NC. Patient sitting up in chair. Patient continues to have hypoxic episodes with exertion. However no major changes from previous. Patient reports improvement. She has been eating well. Denies fever or chills. Discharge pending; not stable for discharge at this time. - Past Medical Family Social History Past Med/Fam/Surg Hx: No changes since H&P Allergies: Allergies No Known Drug Allergies Allergy (Verified 06/08/19 13:47) - Review of Systems ROS: No change since H&P - Vital Signs and I&O's Vital Signs: Temperature 98.2 F Pulse Rate 83 Respiratory Rate 24 Blood Pressure [Left Arm] 165/89 Blood Pressure 150/70 O2 Sat by Pulse Oximetry 96 Intake and Output: Intake & Output 05/01/21 05/02/21 05/03/21 05/04/21 23:59 23:59 23:59 23:59 Intake Total 1709 / 1709 1398 / 1398 1209 / 1209 671 / 671 Output Total 1625 / 1625 1275 / 1275 900 / 900 250 / 250 Balance 84 / 84 123 / 123 309 / 309 421 / 421 - Physical Exam Oriented: Normal, Time, Person, Place Eyes: Normal Ear: Normal Nose: Normal Throat: Normal Respiratory: Generalized, Rales, Rhonchi Cardiovascular: Normal : Normal Auscultation: Bowel Sounds: Normal Palpation: Normal Tenderness: Normal Skin: Normal Musculoskeletal: Normal, Instability Psychiatric: Normal Mood Description: Calm Affect: Normal Speech Pattern: Clear, Appropriate - Laboratory and Diagnostics Result Diagrams: 05/04/21 14:05 05/04/21 14:05 Labs: Laboratory WBC 14.9 X10^3/uL (3.6-10.0) H 05/04/21 14:05 RBC 4.45 X10^6/uL (3.5-5.4) 05/04/21 14:05 Hgb 12.5 g/dL (12.0-16.0) 05/04/21 14:05 Hct 38.2 % (36.0-47.0) 05/04/21 14:05 MCV 85.9 fL (80.0-100.0) 05/04/21 14:05 MCH 28.1 pg (27.0-34.0) 05/04/21 14:05 MCHC 32.8 g/dL (33.0-35.0) L 05/04/21 14:05 RDW 13.5 % (11.6-16.5) 05/04/21 14:05 Plt Count 462 X10^3/uL (150.0-450.0) H 05/04/21 14:05 Plt Count Comment Increased (ADEQUATE) A 05/04/21 14:05 MPV 7.4 fL (7.4-11.0) 05/04/21 14:05 Neut % (Auto) 81.5 % (42.0-75.0) H 05/04/21 14:05 Lymph % (Auto) 8.4 % (21.0-51.0) L 05/04/21 14:05 [place] % (Auto) 9.9 % (0.0-13.0) 05/04/21 14:05 Eos % (Auto) 0.0 % (0.9-2.9) L 05/04/21 14:05 Baso % (Auto) 0.2 % (0.2-1.0) 05/04/21 14:05 Neut # (Auto) 12.2 x10^3/uL (2.2-4.8) H 05/04/21 14:05 Lymph # (Auto) 1.3 X10^3/uL (1.3-2.9) 05/04/21 14:05 [place] # (Auto) 1.5 x10^3/uL (0.3-0.8) H 05/04/21 14:05 Eos # (Auto) 0.0 x10^3/uL (0.0-0.2) 05/04/21 14:05 Baso # (Auto) 0.0 X10^3/uL (0.0-0.1) 05/04/21 14:05 Absolute Nucleated RBC 0.1 /100WBC 05/04/21 14:05 Total Counted 100 05/04/21 14:05 Neutrophils % (Manual) 80 % (39-76) H 05/04/21 14:05 Band Neutrophils % 2 % (0-10) 05/02/21 03:56 Lymphocytes % (Manual) 19 % (13-43) 05/04/21 14:05 Monocytes % (Manual) 1 % (4-9) L 05/04/21 14:05 Plt Morphology Comment Normal (NORMAL) 05/04/21 14:05 RBC Morphology Normal (NORMAL) 05/04/21 14:05 Sample Site Rb 05/04/21 05:44 ABG pH 7.510 (7.35-7.45) H 05/04/21 05:44 ABG pCO2 42.0 mmHg (35.0-45.0) 05/04/21 05:44 ABG pO2 45.0 mmHg (80.0-100.0) L* 05/04/21 05:44 ABG HCO3 33.5 mmol/L (22-26) H* 05/04/21 05:44 ABG O2 Saturation 85.0 % (90-100) L 05/04/21 05:44 ABG Base Excess 9.5 mmol/L (-2.0-2.0) H 05/04/21 05:44 Patrice Test Na 05/04/21 05:44 A-a Gradient 52.0 mmHg 05/04/21 05:44 FiO2 21.0 05/04/21 05:44 Blood Gas Comments Cj well gmb 05/04/21 05:44 Sodium 137 mmol/L (136-145) 05/04/21 14:05 Corrected Sodium 141 mmol/L (136-145) 05/04/21 14:05 Potassium 3.8 mmol/L (3.5-5.1) 05/04/21 14:05 Chloride 100 mmol/L (98-107) 05/04/21 14:05 Carbon Dioxide 30.7 mmol/L (21-32) 05/04/21 14:05 BUN 18 mg/dL (7-18) 05/04/21 14:05 Creatinine 0.91 mg/dL (0.55-1.02) 05/04/21 14:05 Est GFR (MDRD) Af Amer > 60 (>60) 05/04/21 14:05 Est GFR (MDRD) Non-Af > 60 (>60) 05/04/21 14:05 Glucose 253 mg/dL (65-99) H 05/04/21 14:05 POC Glucose (mg/dL) 217 mg/dL (65-99) H 05/04/21 16:04 Calcium 8.5 mg/dL (8.5-10.1) 05/04/21 14:05 Corrected Calcium 9.7 mg/dL (8.5-10.1) 05/04/21 14:05 Magnesium 2.2 mg/dL (1.7-2.9) 05/02/21 04:30 Total Bilirubin 0.40 mg/dL (0.2-1.0) 05/04/21 14:05 AST 13 Units/L (15-37) L 05/04/21 14:05 ALT 23 Units/L (12-78) 05/04/21 14:05 Alkaline Phosphatase 59 Units/L (46-116) 05/04/21 14:05 Creatine Kinase 44 Units/L (26-192) 04/28/21 13:22 CK-MB (CK-2) < 1.0 ng/mL (0-4.0) 04/28/21 13:22 CK/CKMB % Calc 2.3 % (<4) 04/28/21 13:22 Troponin I < 0.02 ng/mL (0-1.5) 04/28/21 13:22 C-Reactive Protein 40.30 mg/L (0-3.0) H 04/30/21 04:21 Total Protein 5.8 g/dL (6.4-8.2) L 05/04/21 14:05 Albumin 2.5 g/dL (3.4-5.0) L 05/04/21 14:05 Globulin 3.3 g/dL (2.5-4.5) 05/04/21 14:05 Albumin/Globulin Ratio 0.8 Ratio (1.1-2.1) L 05/04/21 14:05 Specimen Type Clean catch urine 04/28/21 23:16 Urine Color Yellow (YELLOW) 04/28/21 23:16 Urine Appearance Clear (CLEAR) 04/28/21 23:16 Urine pH 6.0 (5.0 - 8.0) 04/28/21 23:16 Ur Specific [place] 1.015 (1.000-1.030) 04/28/21 23:16 Urine Protein 2+ (NEGATIVE) 04/28/21 23:16 Urine Glucose (UA) 3+ (NEGATIVE) 04/28/21 23:16 Urine Ketones 3+ (NEGATIVE) 04/28/21 23:16 Urine Occult Blood 1+ (NEGATIVE) 04/28/21 23:16 Urine Nitrite Negative (NEGATIVE) 04/28/21 23:16 Urine Bilirubin Negative (NEGATIVE) 04/28/21 23:16 Urine Urobilinogen Normal (NORMAL) 04/28/21 23:16 Ur Leukocyte Esterase Negative (NEGATIVE) 04/28/21 23:16 Urine RBC 0-2 /HPF (0-3) 04/28/21 23:16 Urine WBC None seen /HPF (0-5) 04/28/21 23:16 Ur Squamous Epith Cells Rare /HPF (NEGATIVE) 04/28/21 23:16 Urine Bacteria Negative /HPF (NEGATIVE) 04/28/21 23:16 Ur Culture Indicated? No/not indicated 04/28/21 23:16 SARS-CoV-2 (PCR) Positive (NEGATIVE) A 04/28/21 14:42 Influenza Type A (PCR) Negative (NEGATIVE) 04/28/21 14:42 Influenza Type B (PCR) Negative (NEGATIVE) 04/28/21 14:42 RSV (PCR) Negative (NEGATIVE) 04/28/21 14:42 - Plan (1) Acute respiratory failure with hypoxia Status: Acute Plan: supplemental oxygen. Repeat labs ABG CXR. Trend labs, CXR, and ABG. PT. See EMR (2) 2019 novel coronavirus-infected pneumonia (NCIP) Status: Acute (3) Generalized weakness Status: Acute (4) Dyspnea Status: Acute Qualifiers: Dyspnea type: shortness of breath Qualified Code(s): R06.02 - Shortness of breath
[2021-05-04 17:59] LABS: ABG BASE EXCESS 6.2 mmol/L (-2.0-2.0); ABG HCO3 29.5 mmol/L (22-26)
[2021-05-04 18:00] LABS: ABG ALLEN TEST POS
[2021-05-04] MEDS: ZOCOR TAB 20 MG PO SCH (20:39)
[2021-05-04] MEDS: SNACK - Diabetic Appropriate PO SCH (20:40)
[2021-05-04] MEDS ORDERED: PEPCID TAB 20 MG PO ONE (22:43)
[2021-05-04] MEDS ORDERED: MAALOX or MYLANTA PO ONE (22:54)
[2021-05-05] MEDS: SOLU-Medrol 40 MG VIAL IVP SCH ×3 (05:12→21:26)
[2021-05-05] MEDS: ZOSYN VIAL 3.375 GRAMS 3.375 G in NS 100 ML IV + SPIKE MINIBAG* 100 ML IV SCH ×3 (05:12→21:26)
[2021-05-05] MEDS: NovoLIN R (or HumuLIN R) SUBCUT PRN ×4 (05:13→20:42)
[2021-05-05 05:14] LABS: BASOPHILS % (AUTO) 0.2 % (0.2-1.0); HEMATOCRIT 32.8 % (36.0-47.0); LYMPHOCYTES # (AUTO) 1.1 X10^3/uL (1.3-2.9); MEAN CORPUSCULAR HEMOGLOBIN 28.5 pg (27.0-34.0); MEAN CORPUSCULAR HGB CONC 33.5 g/dL (33.0-35.0); MEAN PLATELET VOLUME 7.2 fL (7.4-11.0); MONOCYTES # (AUTO) 0.8 x10^3/uL (0.3-0.8); MONOCYTES % (AUTO) 5.9 % (0.0-13.0); NEUTROPHILS # (AUTO) 11.4 x10^3/uL (2.2-4.8); NEUTROPHILS % (AUTO) 85.9 % (42.0-75.0); PLATELET COUNT 364 X10^3/uL (150.0-450.0); RED BLOOD COUNT 3.86 X10^6/uL (3.5-5.4); RED CELL DISTRIBUTION WIDTH 13.4 % (11.6-16.5); WHITE BLOOD COUNT 13.3 X10^3/uL (3.6-10.0)
[2021-05-05 05:24] LABS: ALANINE AMINOTRANSFERASE 19 Units/L (12-78); ALBUMIN 2.3 g/dL (3.4-5.0); ALKALINE PHOSPHATASE 43 Units/L (46-116); ASPARTATE AMINO TRANSFERASE 13 Units/L (15-37); BLOOD UREA NITROGEN 17 mg/dL (7-18); CALCIUM 8.2 mg/dL (8.5-10.1); CARBON DIOXIDE 32.3 mmol/L (21-32); CHLORIDE 101 mmol/L (98-107); COR CA(FOR HYPOALB) 9.6 mg/dL (8.5-10.1); COR NA(FOR HYPERGLY) 142 mmol/L (136-145); CREATININE 0.65 mg/dL (0.55-1.02); SODIUM 138 mmol/L (136-145); eGFR NON BLACK RACES > 60 (>60)
[2021-05-05] MEDS: SYNTHROID 75 mcg TAB PO SCH (06:15)
--- NOTE | 2021-05-05 07:14 | RAD ---
HISTORYCOVID+, HYPOXIASTUDYCHEST, 1 [id number]/09/2021.TECHNIQUEAP view of the chestFINDINGSCardiac and mediastinal contours are within normal limits. No significant change in peripheral lower lung predominant airspace opacities. No definite pleural effusion or pneumothorax.IMPRESSIONNo significant change.Electronically signed by: Noah Brian (May 05, 2021 07:12:31)
[2021-05-05] MEDS ORDERED: GLUCOPHAGE ONE ×2 (08:35→20:29)
[2021-05-05] MEDS: GLUCOPHAGE PO SCH ×3 (08:47→20:45)
[2021-05-05] MEDS: HEMOCYTE-PLUS PO SCH (08:48)
[2021-05-05] MEDS: LOVENOX INJ 30 MG SYR SC SCH ×2 (08:48→20:41)
[2021-05-05] MEDS: CYMBALTA PO SCH (08:48)
[2021-05-05] MEDS: PEPCID TAB 40 MG PO SCH ×2 (08:51→20:45)
[2021-05-05] MEDS: ZESTRIL TAB 5 MG PO SCH ×2 (08:52→20:39)
[2021-05-05] MEDS: ZINC SULFATE PO SCH ×2 (08:52→20:39)
[2021-05-05] MEDS: VITAMIN A PO SCH (08:52)
[2021-05-05] MEDS: VITAMIN C PO SCH (08:52)
[2021-05-05] MEDS: VITAMIN D3 125 mcg (5,000 UNITS) PO SCH (08:52)
[2021-05-05] MEDS: ZITHROMAX TAB 250 MG PO SCH (08:53)
[2021-05-05] MEDS: BROVANA IN SCH ×2 (09:00→20:25)
[2021-05-05] MEDS: PULMICORT NEB TX 0.5 MG NEB SCH ×2 (09:00→20:25)
--- NOTE | 2021-05-05 16:06 | PCM.PROG ---
Progress Note - Subjective Subjective: Patient is a 75 year old white female who was admitted due to covid, pneumonia, and hypoxia. Patient is tolerating oxygen at 4L NC. Patient lying in bed in no acute distress. Patient continues to have hypoxic episodes with exertion. Room air PO2 remains in the 40s. On oxygen PO2 was 69. Would like for room air PO2 to be better before discharge. However no major changes from previ ous. Patient reports improvement in symptoms. She has been eating well. Denies any changes in bowel or bladder. Denies fever or chills. Discharge pending; not stable for discharge at this time. - Past Medical Family Social History Past Med/Fam/Surg Hx: No changes since H&P Allergies: Allergies No Known Drug Allergies Allergy (Verified 06/08/19 13:47) - Review of Systems ROS: No change since H&P - Vital Signs and I&O's Vital Signs: Temperature 98.9 F Pulse Rate 102 Respiratory Rate 29 Blood Pressure [Left Arm] 165/89 Blood Pressure 130/75 O2 Sat by Pulse Oximetry 89 Intake and Output: Intake & Output 05/02/21 05/03/21 05/04/21 05/05/21 23:59 23:59 23:59 23:59 Intake Total 1398 / 1398 1209 / 1209 1081 / 1081 145 / 145 Output Total 1275 / 1275 900 / 900 700 / 700 525 / 525 Balance 123 / 123 309 / 309 381 / 381 -380 / -380 - Physical Exam Oriented: Normal, Time, Person, Place Eyes: Normal Ear: Normal Nose: Normal Throat: Normal Respiratory: Generalized, Rales, Rhonchi Cardiovascular: Normal : Normal Auscultation: Bowel Sounds: Normal Palpation: Normal Tenderness: Normal Skin: Normal Musculoskeletal: Normal, Instability Psychiatric: Normal Mood Description: Calm Affect: Normal Speech Pattern: Clear, Appropriate - Laboratory and Diagnostics Result Diagrams: 05/05/21 04:13 05/05/21 04:13 Labs: Laboratory WBC 13.3 X10^3/uL (3.6-10.0) H 05/05/21 04:13 RBC 3.86 X10^6/uL (3.5-5.4) 05/05/21 04:13 Hgb 11.0 g/dL (12.0-16.0) L 05/05/21 04:13 Hct 32.8 % (36.0-47.0) L 05/05/21 04:13 MCV 85.0 fL (80.0-100.0) 05/05/21 04:13 MCH 28.5 pg (27.0-34.0) 05/05/21 04:13 MCHC 33.5 g/dL (33.0-35.0) 05/05/21 04:13 RDW 13.4 % (11.6-16.5) 05/05/21 04:13 Plt Count 364 X10^3/uL (150.0-450.0) 05/05/21 04:13 Plt Count Comment Increased (ADEQUATE) A 05/04/21 14:05 MPV 7.2 fL (7.4-11.0) L 05/05/21 04:13 Neut % (Auto) 85.9 % (42.0-75.0) H 05/05/21 04:13 Lymph % (Auto) 8.0 % (21.0-51.0) L 05/05/21 04:13 [place] % (Auto) 5.9 % (0.0-13.0) 05/05/21 04:13 Eos % (Auto) 0.0 % (0.9-2.9) L 05/05/21 04:13 Baso % (Auto) 0.2 % (0.2-1.0) 05/05/21 04:13 Neut # (Auto) 11.4 x10^3/uL (2.2-4.8) H 05/05/21 04:13 Lymph # (Auto) 1.1 X10^3/uL (1.3-2.9) L 05/05/21 04:13 [place] # (Auto) 0.8 x10^3/uL (0.3-0.8) 05/05/21 04:13 Eos # (Auto) 0.0 x10^3/uL (0.0-0.2) 05/05/21 04:13 Baso # (Auto) 0.0 X10^3/uL (0.0-0.1) 05/05/21 04:13 Absolute Nucleated RBC 0.0 /100WBC 05/05/21 04:13 Total Counted 100 05/04/21 14:05 Neutrophils % (Manual) 80 % (39-76) H 05/04/21 14:05 Band Neutrophils % 2 % (0-10) 05/02/21 03:56 Lymphocytes % (Manual) 19 % (13-43) 05/04/21 14:05 Monocytes % (Manual) 1 % (4-9) L 05/04/21 14:05 Plt Morphology Comment Normal (NORMAL) 05/04/21 14:05 RBC Morphology Normal (NORMAL) 05/04/21 14:05 Sample Site Lr 05/04/21 18:00 ABG pH 7.510 (7.35-7.45) H 05/04/21 18:00 ABG pCO2 37.0 mmHg (35.0-45.0) 05/04/21 18:00 ABG pO2 69.0 mmHg (80.0-100.0) L 05/04/21 18:00 ABG HCO3 29.5 mmol/L (22-26) H 05/04/21 18:00 ABG O2 Saturation 95.0 % (90-100) 05/04/21 18:00 ABG Base Excess 6.2 mmol/L (-2.0-2.0) H 05/04/21 18:00 Patrice Test Pos 05/04/21 18:00 A-a Gradient 84.0 mmHg 05/04/21 18:00 FiO2 28.0 05/04/21 18:00 Blood Gas Comments Cj well. sd 05/04/21 18:00 Sodium 138 mmol/L (136-145) 05/05/21 04:13 Corrected Sodium 142 mmol/L (136-145) 05/05/21 04:13 Potassium 3.9 mmol/L (3.5-5.1) 05/05/21 04:13 Chloride 101 mmol/L (98-107) 05/05/21 04:13 Carbon Dioxide 32.3 mmol/L (21-32) H 05/05/21 04:13 BUN 17 mg/dL (7-18) 05/05/21 04:13 Creatinine 0.65 mg/dL (0.55-1.02) 05/05/21 04:13 Est GFR (MDRD) Af Amer > 60 (>60) 05/05/21 04:13 Est GFR (MDRD) Non-Af > 60 (>60) 05/05/21 04:13 Glucose 251 mg/dL (65-99) H 05/05/21 04:13 POC Glucose (mg/dL) 223 mg/dL (65-99) H 05/05/21 15:54 Calcium 8.2 mg/dL (8.5-10.1) L 05/05/21 04:13 Corrected Calcium 9.6 mg/dL (8.5-10.1) 05/05/21 04:13 Magnesium 2.2 mg/dL (1.7-2.9) 05/02/21 04:30 Total Bilirubin 0.50 mg/dL (0.2-1.0) 05/05/21 04:13 AST 13 Units/L (15-37) L 05/05/21 04:13 ALT 19 Units/L (12-78) 05/05/21 04:13 Alkaline Phosphatase 43 Units/L (46-116) L 05/05/21 04:13 Creatine Kinase 44 Units/L (26-192) 04/28/21 13:22 CK-MB (CK-2) < 1.0 ng/mL (0-4.0) 04/28/21 13:22 CK/CKMB % Calc 2.3 % (<4) 04/28/21 13:22 Troponin I < 0.02 ng/mL (0-1.5) 04/28/21 13:22 C-Reactive Protein 40.30 mg/L (0-3.0) H 04/30/21 04:21 Total Protein 5.0 g/dL (6.4-8.2) L 05/05/21 04:13 Albumin 2.3 g/dL (3.4-5.0) L 05/05/21 04:13 Globulin 2.7 g/dL (2.5-4.5) 05/05/21 04:13 Albumin/Globulin Ratio 0.9 Ratio (1.1-2.1) L 05/05/21 04:13 Specimen Type Clean catch urine 04/28/21 23:16 Urine Color Yellow (YELLOW) 04/28/21 23:16 Urine Appearance Clear (CLEAR) 04/28/21 23:16 Urine pH 6.0 (5.0 - 8.0) 04/28/21 23:16 Ur Specific [place] 1.015 (1.000-1.030) 04/28/21 23:16 Urine Protein 2+ (NEGATIVE) 04/28/21 23:16 Urine Glucose (UA) 3+ (NEGATIVE) 04/28/21 23:16 Urine Ketones 3+ (NEGATIVE) 04/28/21 23:16 Urine Occult Blood 1+ (NEGATIVE) 04/28/21 23:16 Urine Nitrite Negative (NEGATIVE) 04/28/21 23:16 Urine Bilirubin Negative (NEGATIVE) 04/28/21 23:16 Urine Urobilinogen Normal (NORMAL) 04/28/21 23:16 Ur Leukocyte Esterase Negative (NEGATIVE) 04/28/21 23:16 Urine RBC 0-2 /HPF (0-3) 04/28/21 23:16 Urine WBC None seen /HPF (0-5) 04/28/21 23:16 Ur Squamous Epith Cells Rare /HPF (NEGATIVE) 04/28/21 23:16 Urine Bacteria Negative /HPF (NEGATIVE) 04/28/21 23:16 Ur Culture Indicated? No/not indicated 04/28/21 23:16 SARS-CoV-2 (PCR) Positive (NEGATIVE) A 04/28/21 14:42 Influenza Type A (PCR) Negative (NEGATIVE) 04/28/21 14:42 Influenza Type B (PCR) Negative (NEGATIVE) 04/28/21 14:42 RSV (PCR) Negative (NEGATIVE) 04/28/21 14:42 - Plan (1) Acute respiratory failure with hypoxia Status: Acute Plan: supplemental oxygen. Repeat labs ABG CXR. Trend labs, CXR, and ABG. PT. See EMR (2) 2019 novel coronavirus-infected pneumonia (NCIP) Status: Acute (3) Generalized weakness Status: Acute (4) Dyspnea Status: Acute Qualifiers: Dyspnea type: shortness of breath Qualified Code(s): R06.02 - Shortness of breath
[2021-05-05 19:18] VITALS: BMI 21.3
[2021-05-05] MEDS ORDERED: NS 100 ML IV + SPIKE MINIBAG* 100 ML IV ONE (20:30)
[2021-05-05] MEDS ORDERED: ZOSYN VIAL 3.375 GRAMS IV ONE (20:34)
[2021-05-05] MEDS: ZOCOR TAB 20 MG PO SCH (20:38)
[2021-05-05] MEDS: SNACK - Diabetic Appropriate PO SCH (21:00)
[2021-05-06 04:55] LABS: ABG BASE EXCESS 9.1 mmol/L (-2.0-2.0)
[2021-05-06 04:56] LABS: ABG ALLEN TEST POS; ABG HCO3 33.5 mmol/L (22-26)
[2021-05-06] MEDS: SOLU-Medrol 40 MG VIAL IVP SCH ×3 (05:13→22:10)
[2021-05-06] MEDS: ZOSYN VIAL 3.375 GRAMS 3.375 G in NS 100 ML IV + SPIKE MINIBAG* 100 ML IV SCH ×3 (05:13→22:21)
[2021-05-06] MEDS: NovoLIN R (or HumuLIN R) SUBCUT PRN ×4 (05:55→22:00)
[2021-05-06] MEDS: SYNTHROID 75 mcg TAB PO SCH (05:56)
--- NOTE | 2021-05-06 06:04 | RAD ---
HISTORYCOVID-19 HX: HTNSTUDYCHEST, 1 [id number] trachea is midline normal heart size. There is again seen interstitial and alveolar radiopacities in the midlung zones with some confluent areas in the left lower lobe as well as in the right lower lobe with mild interval worsening. No evidence of pneumothorax or pleural effusions.IMPRESSIONMild interval worsening of air space disease with reticular and alveolar radiopacities involving the lower lobes and the periphery and in the midlung zones.Electronically signed by: Polly Guallpa (May 06, 2021 06:03:46)
[2021-05-06 06:06] LABS: BASOPHILS % (AUTO) 0.1 % (0.2-1.0); HEMATOCRIT 31.2 % (36.0-47.0); HEMOGLOBIN 10.7 g/dL (12.0-16.0); LYMPHOCYTES # (AUTO) 1.2 X10^3/uL (1.3-2.9); LYMPHOCYTES % (AUTO) 8.2 % (21.0-51.0); MEAN CORPUSCULAR HEMOGLOBIN 29.3 pg (27.0-34.0); MEAN CORPUSCULAR HGB CONC 34.2 g/dL (33.0-35.0); MEAN CORPUSCULAR VOLUME 85.6 fL (80.0-100.0); MEAN PLATELET VOLUME 7.4 fL (7.4-11.0); MONOCYTES # (AUTO) 1.1 x10^3/uL (0.3-0.8); MONOCYTES % (AUTO) 7.4 % (0.0-13.0); NEUTROPHILS # (AUTO) 12.5 x10^3/uL (2.2-4.8); NEUTROPHILS % (AUTO) 84.3 % (42.0-75.0); PLATELET COUNT 307 X10^3/uL (150.0-450.0); RED BLOOD COUNT 3.65 X10^6/uL (3.5-5.4); RED CELL DISTRIBUTION WIDTH 13.5 % (11.6-16.5); WHITE BLOOD COUNT 14.8 X10^3/uL (3.6-10.0)
[2021-05-06 06:22] LABS: ALANINE AMINOTRANSFERASE 19 Units/L (12-78); ALBUMIN 2.2 g/dL (3.4-5.0); ALKALINE PHOSPHATASE 40 Units/L (46-116); ASPARTATE AMINO TRANSFERASE 12 Units/L (15-37); BLOOD UREA NITROGEN 16 mg/dL (7-18); CALCIUM 8.1 mg/dL (8.5-10.1); CARBON DIOXIDE 32.3 mmol/L (21-32); CHLORIDE 101 mmol/L (98-107); COR CA(FOR HYPOALB) 9.5 mg/dL (8.5-10.1); COR NA(FOR HYPERGLY) 141 mmol/L (136-145); CREATININE 0.64 mg/dL (0.55-1.02); SODIUM 137 mmol/L (136-145); TOTAL PROTEIN 4.8 g/dL (6.4-8.2); eGFR NON BLACK RACES > 60 (>60)
[2021-05-06] MEDS: PULMICORT NEB TX 0.5 MG NEB SCH ×2 (09:10→21:02)
[2021-05-06] MEDS: BROVANA IN SCH ×2 (09:10→21:02)
[2021-05-06] MEDS ORDERED: GLUCOPHAGE ONE ×2 (10:05→21:58)
[2021-05-06] MEDS: CYMBALTA PO SCH (10:08)
[2021-05-06] MEDS: GLUCOPHAGE PO SCH ×2 (10:09→22:00)
[2021-05-06] MEDS: HEMOCYTE-PLUS PO SCH (10:09)
[2021-05-06] MEDS: PEPCID TAB 40 MG PO SCH ×2 (10:09→22:00)
[2021-05-06] MEDS: LOVENOX INJ 30 MG SYR SC SCH ×2 (10:09→22:00)
[2021-05-06] MEDS: VITAMIN C PO SCH (10:10)
[2021-05-06] MEDS: VITAMIN D3 125 mcg (5,000 UNITS) PO SCH (10:10)
[2021-05-06] MEDS: ZINC SULFATE PO SCH ×2 (10:10→22:00)
[2021-05-06] MEDS: ZITHROMAX TAB 250 MG PO SCH (10:10)
[2021-05-06] MEDS: VITAMIN A PO SCH (10:10)
[2021-05-06] MEDS: ZESTRIL TAB 5 MG PO SCH ×2 (10:10→22:00)
--- NOTE | 2021-05-06 15:11 | PCM.PROG ---
Progress Note Progress Note for Day of Date of Exam: 05/06/21 Subjective Subjective: Patient is a 75 year old white female who was admitted due to covid, pneumonia, and hypoxia. Patient is tolerating oxygen at 4L NC. Patient lying in bed in no acute distress. Patient continues to have hypoxic episodes with exertion. Room air PO2 remains in the 40s. On oxygen PO2 was 50 this am. Would like for room air PO2 to be better before discharge. However no major changes from previous. Patient reports improvement in symptoms. She has been eating well. Denies any changes in bowel or bladder. Denies fever or chills. Discharge pending; not stable for discharge at this time. No new complaints this am. She does feel better overall. Past Medical Family Social History Past Med/Fam/Surg Hx: No changes since H&P Allergies: Allergies No Known Drug Allergies Allergy (Verified 06/08/19 13:47) Review of Systems ROS: No change since H&P Vital Signs and I&O's Vital Signs: Temperature 98.4 F Pulse Rate [Left Radial] 69 Pulse Rate 96 Respiratory Rate 29 Blood Pressure [Left Arm] 168/74 Blood Pressure 140/71 O2 Sat by Pulse Oximetry 94 Intake and Output: Intake & Output 05/04/21 05/05/21 05/06/21 05/07/21 11:59 11:59 11:59 11:59 Intake Total 1163 / 1163 1053 / 1053 1336 / 1336 Output Total 750 / 750 975 / 975 Balance 413 / 413 78 / 78 1336 / 1336 Physical Exam Oriented: Normal, Time, Person and Place Eyes: Normal Ear: Normal Nose: Normal Throat: Normal Respiratory: Generalized, Rales and Rhonchi Cardiovascular: Normal : Normal Auscultation: Bowel Sounds: Normal Tenderness: Normal Skin: Normal Musculoskeletal: Normal and Instability Psychiatric: Normal Mood Description: Calm Affect: Normal Speech Pattern: Clear and Appropriate Laboratory and Diagnostics Result Diagrams: 05/06/21 05:15 05/06/21 05:15 Labs: Laboratory WBC 14.8 X10^3/uL (3.6-10.0) H 05/06/21 05:15 RBC 3.65 X10^6/uL (3.5-5.4) 05/06/21 05:15 Hgb 10.7 g/dL (12.0-16.0) L 05/06/21 05:15 Hct 31.2 % (36.0-47.0) L 05/06/21 05:15 MCV 85.6 fL (80.0-100.0) 05/06/21 05:15 MCH 29.3 pg (27.0-34.0) 05/06/21 05:15 MCHC 34.2 g/dL (33.0-35.0) 05/06/21 05:15 RDW 13.5 % (11.6-16.5) 05/06/21 05:15 Plt Count 307 X10^3/uL (150.0-450.0) 05/06/21 05:15 Plt Count Comment Increased (ADEQUATE) A 05/04/21 14:05 MPV 7.4 fL (7.4-11.0) 05/06/21 05:15 Neut % (Auto) 84.3 % (42.0-75.0) H 05/06/21 05:15 Lymph % (Auto) 8.2 % (21.0-51.0) L 05/06/21 05:15 [place] % (Auto) 7.4 % (0.0-13.0) 05/06/21 05:15 Eos % (Auto) 0.0 % (0.9-2.9) L 05/06/21 05:15 Baso % (Auto) 0.1 % (0.2-1.0) L 05/06/21 05:15 Neut # (Auto) 12.5 x10^3/uL (2.2-4.8) H 05/06/21 05:15 Lymph # (Auto) 1.2 X10^3/uL (1.3-2.9) L 05/06/21 05:15 [place] # (Auto) 1.1 x10^3/uL (0.3-0.8) H 05/06/21 05:15 Eos # (Auto) 0.0 x10^3/uL (0.0-0.2) 05/06/21 05:15 Baso # (Auto) 0.0 X10^3/uL (0.0-0.1) 05/06/21 05:15 Absolute Nucleated RBC 0.0 /100WBC 05/06/21 05:15 Total Counted 100 12/09/21 14:05 Neutrophils % (Manual) 80 % (39-76) H 05/04/21 14:05 Band Neutrophils % 2 % (0-10) 05/02/21 03:56 Lymphocytes % (Manual) 19 % (13-43) 05/04/21 14:05 Monocytes % (Manual) 1 % (4-9) L 05/04/21 14:05 Plt Morphology Comment Normal (NORMAL) 05/04/21 14:05 RBC Morphology Normal (NORMAL) 05/04/21 14:05 Sample Site Lr 05/06/21 04:50 ABG pH 7.490 (7.35-7.45) H 05/06/21 04:50 ABG pCO2 44.0 mmHg (35.0-45.0) 05/06/21 04:50 ABG pO2 50.0 mmHg (80.0-100.0) L 05/06/21 04:50 ABG HCO3 33.5 mmol/L (22-26) H* 05/06/21 04:50 ABG O2 Saturation 88.0 % (90-100) L 05/06/21 04:50 ABG Base Excess 9.1 mmol/L (-2.0-2.0) H 05/06/21 04:50 Patrice Test Pos 05/06/21 04:50 A-a Gradient 45.0 mmHg 05/06/21 04:50 FiO2 21.0 05/06/21 04:50 Blood Gas Comments Cj well ae 05/06/21 04:50 Sodium 137 mmol/L (136-145) 05/06/21 05:15 Corrected Sodium 141 mmol/L (136-145) 05/06/21 05:15 Potassium 4.3 mmol/L (3.5-5.1) 05/06/21 05:15 Chloride 101 mmol/L (98-107) 05/06/21 05:15 Carbon Dioxide 32.3 mmol/L (21-32) H 05/06/21 05:15 BUN 16 mg/dL (7-18) 05/06/21 05:15 Creatinine 0.64 mg/dL (0.55-1.02) 05/06/21 05:15 Est GFR (MDRD) Af Amer > 60 (>60) 05/06/21 05:15 Est GFR (MDRD) Non-Af > 60 (>60) 05/06/21 05:15 Glucose 262 mg/dL (65-99) H 05/06/21 05:15 POC Glucose (mg/dL) 236 mg/dL (65-99) H 05/06/21 11:33 Calcium 8.1 mg/dL (8.5-10.1) L 05/06/21 05:15 Corrected Calcium 9.5 mg/dL (8.5-10.1) 05/06/21 05:15 Magnesium 2.2 mg/dL (1.7-2.9) 05/02/21 04:30 Total Bilirubin 0.40 mg/dL (0.2-1.0) 05/06/21 05:15 AST 12 Units/L (15-37) L 05/06/21 05:15 ALT 19 Units/L (12-78) 05/06/21 05:15 Alkaline Phosphatase 40 Units/L (46-116) L 05/06/21 05:15 Creatine Kinase 44 Units/L (26-192) 04/28/21 13:22 CK-MB (CK-2) < 1.0 ng/mL (0-4.0) 04/28/21 13:22 CK/CKMB % Calc 2.3 % (<4) 04/28/21 13:22 Troponin I < 0.02 ng/mL (0-1.5) 04/28/21 13:22 C-Reactive Protein 40.30 mg/L (0-3.0) H 04/30/21 04:21 Total Protein 4.8 g/dL (6.4-8.2) L 05/06/21 05:15 Albumin 2.2 g/dL (3.4-5.0) L 05/06/21 05:15 Globulin 2.6 g/dL (2.5-4.5) 05/06/21 05:15 Albumin/Globulin Ratio 0.8 Ratio (1.1-2.1) L 05/06/21 05:15 Specimen Type Clean catch urine 04/28/21 23:16 Urine Color Yellow (YELLOW) 04/28/21 23:16 Urine Appearance Clear (CLEAR) 04/28/21 23:16 Urine pH 6.0 (5.0 - 8.0) 04/28/21 23:16 Ur Specific [place] 1.015 (1.000-1.030) 04/28/21 23:16 Urine Protein 2+ (NEGATIVE) 04/28/21 23:16 Urine Glucose (UA) 3+ (NEGATIVE) 04/28/21 23:16 Urine Ketones 3+ (NEGATIVE) 04/28/21 23:16 Urine Occult Blood 1+ (NEGATIVE) 04/28/21 23:16 Urine Nitrite Negative (NEGATIVE) 04/28/21 23:16 Urine Bilirubin Negative (NEGATIVE) 04/28/21 23:16 Urine Urobilinogen Normal (NORMAL) 04/28/21 23:16 Ur Leukocyte Esterase Negative (NEGATIVE) 04/28/21 23:16 Urine RBC 0-2 /HPF (0-3) 04/28/21 23:16 Urine WBC None seen /HPF (0-5) 04/28/21 23:16 Ur Squamous Epith Cells Rare /HPF (NEGATIVE) 04/28/21 23:16 Urine Bacteria Negative /HPF (NEGATIVE) 04/28/21 23:16 Ur Culture Indicated? No/not indicated 04/28/21 23:16 SARS-CoV-2 (PCR) Positive (NEGATIVE) A 04/28/21 14:42 Influenza Type A (PCR) Negative (NEGATIVE) 04/28/21 14:42 Influenza Type B (PCR) Negative (NEGATIVE) 04/28/21 14:42 RSV (PCR) Negative (NEGATIVE) 04/28/21 14:42 Radiology Reviewed: Yes Plan (1) Acute respiratory failure with hypoxia: Status: Acute Narrative Support Text: Improving but not ready for discharge yet. Perhaps in 1-2 days. Plan: supplemental oxygen Repeat labs ABG CXR Trend labs, CXR, and ABG PT See EMR (2) 2019 novel coronavirus-infected pneumonia (NCIP): Status: Acute (3) Generalized weakness: Status: Acute (4) Dyspnea: Status: Acute Qualifiers: Dyspnea type: shortness of breath Qualified Code(s): R06.02 - Shortness of breath
[2021-05-06] MEDS: SNACK - Diabetic Appropriate PO SCH (21:00)
[2021-05-06] MEDS: ZOCOR TAB 20 MG PO SCH (22:00)
[2021-05-07] MEDS ORDERED: NS 100 ML IV 100 ML ONE (00:11)
[2021-05-07 04:35] LABS: ABG BASE EXCESS 7.2 mmol/L (-2.0-2.0)
[2021-05-07 04:36] LABS: ABG ALLEN TEST POS
[2021-05-07 05:04] LABS: BASOPHILS % (AUTO) 0.1 % (0.2-1.0); HEMATOCRIT 30.8 % (36.0-47.0); HEMOGLOBIN 10.3 g/dL (12.0-16.0); LYMPHOCYTES % (AUTO) 6.7 % (21.0-51.0); MEAN CORPUSCULAR HEMOGLOBIN 29.1 pg (27.0-34.0); MEAN CORPUSCULAR HGB CONC 33.5 g/dL (33.0-35.0); MEAN CORPUSCULAR VOLUME 86.9 fL (80.0-100.0); MEAN PLATELET VOLUME 7.8 fL (7.4-11.0); MONOCYTES # (AUTO) 0.9 x10^3/uL (0.3-0.8); NEUTROPHILS # (AUTO) 13.5 x10^3/uL (2.2-4.8); NEUTROPHILS % (AUTO) 87.2 % (42.0-75.0); PLATELET COUNT 279 X10^3/uL (150.0-450.0); RED BLOOD COUNT 3.55 X10^6/uL (3.5-5.4); RED CELL DISTRIBUTION WIDTH 13.8 % (11.6-16.5); WHITE BLOOD COUNT 15.5 X10^3/uL (3.6-10.0)
[2021-05-07 05:17] LABS: ALANINE AMINOTRANSFERASE 19 Units/L (12-78); ALBUMIN 2.1 g/dL (3.4-5.0); ALKALINE PHOSPHATASE 39 Units/L (46-116); ASPARTATE AMINO TRANSFERASE 10 Units/L (15-37); BLOOD UREA NITROGEN 18 mg/dL (7-18); CARBON DIOXIDE 32.4 mmol/L (21-32); CHLORIDE 102 mmol/L (98-107); COR CA(FOR HYPOALB) 9.5 mg/dL (8.5-10.1); COR NA(FOR HYPERGLY) 141 mmol/L (136-145); CREATININE 0.77 mg/dL (0.55-1.02); SODIUM 137 mmol/L (136-145); TOTAL PROTEIN 4.7 g/dL (6.4-8.2); eGFR NON BLACK RACES > 60 (>60)
[2021-05-07] MEDS: SOLU-Medrol 40 MG VIAL IVP SCH ×3 (05:30→21:13)
[2021-05-07] MEDS: ZOSYN VIAL 3.375 GRAMS 3.375 G in NS 100 ML IV + SPIKE MINIBAG* 100 ML IV SCH ×3 (05:30→21:13)
[2021-05-07] MEDS: NovoLIN R (or HumuLIN R) SUBCUT PRN ×4 (05:43→21:16)
--- NOTE | 2021-05-07 06:01 | RAD ---
PROCEDURE: Chest X-ray 1 View .HISTORY: COVID-19 .TECHNIQUE: AP view .COMPARISON: 05/06/2021.TECHNICAL QUALITY: Satisfactory .FINDINGS:Unremarkable cardio mediastinal silhouette.Normal central vascularity.Patchy pneumonia both lung bases slightly increased right base and unchanged at the left base. No pleural fluid or pneumothorax.IMPRESSION:Mild increase in pneumonia right base and unchanged at the left.Electronically signed by: Issac Monroe (May 07, 2021 05:59:46)
[2021-05-07] MEDS: SYNTHROID 75 mcg TAB PO SCH (06:13)
[2021-05-07] MEDS ORDERED: GLUCOPHAGE ONE ×2 (07:46→20:24)
[2021-05-07] MEDS: CYMBALTA PO SCH (08:05)
[2021-05-07] MEDS: GLUCOPHAGE PO SCH ×2 (08:06→20:57)
[2021-05-07] MEDS: HEMOCYTE-PLUS PO SCH (08:06)
[2021-05-07] MEDS: VITAMIN A PO SCH (08:06)
[2021-05-07] MEDS: LOVENOX INJ 30 MG SYR SC SCH ×2 (08:06→20:57)
[2021-05-07] MEDS: PEPCID TAB 40 MG PO SCH ×2 (08:06→21:14)
[2021-05-07] MEDS: VITAMIN D3 125 mcg (5,000 UNITS) PO SCH (08:07)
[2021-05-07] MEDS: ZINC SULFATE PO SCH ×2 (08:07→21:15)
[2021-05-07] MEDS: VITAMIN C PO SCH (08:07)
[2021-05-07] MEDS: ZESTRIL TAB 5 MG PO SCH ×2 (08:07→21:15)
[2021-05-07] MEDS: ZITHROMAX TAB 250 MG PO SCH (08:07)
[2021-05-07] MEDS: BROVANA IN SCH ×2 (09:48→21:30)
[2021-05-07] MEDS: PULMICORT NEB TX 0.5 MG NEB SCH ×3 (09:48→21:30)
--- NOTE | 2021-05-07 16:20 | PCM.PROG ---
Progress Note Progress Note for Day of Date of Exam: 05/07/21 Subjective Subjective: Patient is a 75 year old white female who was admitted due to covid, pneumonia, and hypoxia. Patient is tolerating oxygen at 4L NC. Patient lying in bed in no acute distress. Patient continues to have hypoxic episodes with exertion. On oxygen PO2 was 72 this am. Patient reports improvement in symptoms. She has been eating well. Denies any changes in bowel or bladder. Denies fever or chills. Discharge pending; not stable for discharge at this time. No new complaints this am. She does feel better overall. CXR did show a worsening of her pneumonia. Recheck CXR in am. Past Medical Family Social History Past Med/Fam/Surg Hx: No changes since H&P Allergies: Allergies No Known Drug Allergies Allergy (Verified 06/08/19 13:47) Review of Systems ROS: No change since H&P Vital Signs and I&O's Vital Signs: Temperature 98.0 F Pulse Rate [Left Radial] 69 Pulse Rate 96 Respiratory Rate 26 Blood Pressure [Left Arm] 168/74 Blood Pressure 131/98 O2 Sat by Pulse Oximetry 95 Intake and Output: Intake & Output 05/05/21 05/06/21 05/07/21 05/08/21 11:59 11:59 11:59 11:59 Intake Total 1053 / 1053 1336 / 1336 1150 / 1150 Output Total 975 / 975 800 / 800 Balance 78 / 78 1336 / 1336 350 / 350 Physical Exam Oriented: Normal, Time, Person and Place Eyes: Normal Ear: Normal Nose: Normal Throat: Normal Respiratory: Generalized, Rales and Rhonchi Cardiovascular: Normal : Normal Auscultation: Bowel Sounds: Normal Tenderness: Normal Skin: Normal Musculoskeletal: Normal and Instability Psychiatric: Normal Mood Description: Calm Affect: Normal Speech Pattern: Clear and Appropriate Laboratory and Diagnostics Result Diagrams: 05/07/21 04:24 05/07/21 04:24 Labs: Laboratory WBC 15.5 X10^3/uL (3.6-10.0) H 05/07/21 04:24 RBC 3.55 X10^6/uL (3.5-5.4) 05/07/21 04:24 Hgb 10.3 g/dL (12.0-16.0) L 05/07/21 04:24 Hct 30.8 % (36.0-47.0) L 05/07/21 04:24 MCV 86.9 fL (80.0-100.0) 05/07/21 04:24 MCH 29.1 pg (27.0-34.0) 05/07/21 04:24 MCHC 33.5 g/dL (33.0-35.0) 05/07/21 04:24 RDW 13.8 % (11.6-16.5) 05/07/21 04:24 Plt Count 279 X10^3/uL (150.0-450.0) 05/07/21 04:24 Plt Count Comment Increased (ADEQUATE) A 05/04/21 14:05 MPV 7.8 fL (7.4-11.0) 05/07/21 04:24 Neut % (Auto) 87.2 % (42.0-75.0) H 05/07/21 04:24 Lymph % (Auto) 6.7 % (21.0-51.0) L 05/07/21 04:24 [place] % (Auto) 6.0 % (0.0-13.0) 05/07/21 04:24 Eos % (Auto) 0.0 % (0.9-2.9) L 05/07/21 04:24 Baso % (Auto) 0.1 % (0.2-1.0) L 05/07/21 04:24 Neut # (Auto) 13.5 x10^3/uL (2.2-4.8) H 05/07/21 04:24 Lymph # (Auto) 1.0 X10^3/uL (1.3-2.9) L 05/07/21 04:24 [place] # (Auto) 0.9 x10^3/uL (0.3-0.8) H 05/07/21 04:24 Eos # (Auto) 0.0 x10^3/uL (0.0-0.2) 05/07/21 04:24 Baso # (Auto) 0.0 X10^3/uL (0.0-0.1) 05/07/21 04:24 Absolute Nucleated RBC 0.0 /100WBC 05/07/21 04:24 Total Counted 100 05/04/21 14:05 Neutrophils % (Manual) 80 % (39-76) H 05/04/21 14:05 Band Neutrophils % 2 % (0-10) 05/02/21 03:56 Lymphocytes % (Manual) 19 % (13-43) 05/04/21 14:05 Monocytes % (Manual) 1 % (4-9) L 05/04/21 14:05 Plt Morphology Comment Normal (NORMAL) 05/04/21 14:05 RBC Morphology Normal (NORMAL) 05/04/21 14:05 Sample Site Lr 05/07/21 05:00 ABG pH 7.460 (7.35-7.45) H 05/07/21 05:00 ABG pCO2 45.0 mmHg (35.0-45.0) 05/07/21 05:00 ABG pO2 72.0 mmHg (80.0-100.0) L 05/07/21 05:00 ABG HCO3 32.0 mmol/L (22-26) H* 05/07/21 05:00 ABG O2 Saturation 95.0 % (90-100) 05/07/21 05:00 ABG Base Excess 7.2 mmol/L (-2.0-2.0) H 05/07/21 05:00 Patrice Test Pos 05/07/21 05:00 A-a Gradient 71.0 mmHg 05/07/21 05:00 FiO2 28.0 05/07/21 05:00 Blood Gas Comments Cj well 05/07/21 05:00 Sodium 137 mmol/L (136-145) 05/07/21 04:24 Corrected Sodium 141 mmol/L (136-145) 05/07/21 04:24 Potassium 4.3 mmol/L (3.5-5.1) 05/07/21 04:24 Chloride 102 mmol/L (98-107) 05/07/21 04:24 Carbon Dioxide 32.4 mmol/L (21-32) H 05/07/21 04:24 BUN 18 mg/dL (7-18) 05/07/21 04:24 Creatinine 0.77 mg/dL (0.55-1.02) 05/07/21 04:24 Est GFR (MDRD) Af Amer > 60 (>60) 05/07/21 04:24 Est GFR (MDRD) Non-Af > 60 (>60) 05/07/21 04:24 Glucose 258 mg/dL (65-99) H 05/07/21 04:24 POC Glucose (mg/dL) 214 mg/dL (65-99) H 05/07/21 11:55 Calcium 8.0 mg/dL (8.5-10.1) L 05/07/21 04:24 Corrected Calcium 9.5 mg/dL (8.5-10.1) 05/07/21 04:24 Magnesium 2.2 mg/dL (1.7-2.9) 05/02/21 04:30 Total Bilirubin 0.40 mg/dL (0.2-1.0) 05/07/21 04:24 AST 10 Units/L (15-37) L 05/07/21 04:24 ALT 19 Units/L (12-78) 05/07/21 04:24 Alkaline Phosphatase 39 Units/L (46-116) L 05/07/21 04:24 Creatine Kinase 44 Units/L (26-192) 04/28/21 13:22 CK-MB (CK-2) < 1.0 ng/mL (0-4.0) 04/28/21 13:22 CK/CKMB % Calc 2.3 % (<4) 04/28/21 13:22 Troponin I < 0.02 ng/mL (0-1.5) 04/28/21 13:22 C-Reactive Protein 40.30 mg/L (0-3.0) H 04/30/21 04:21 Total Protein 4.7 g/dL (6.4-8.2) L 05/07/21 04:24 Albumin 2.1 g/dL (3.4-5.0) L 05/07/21 04:24 Globulin 2.6 g/dL (2.5-4.5) 05/07/21 04:24 Albumin/Globulin Ratio 0.8 Ratio (1.1-2.1) L 05/07/21 04:24 Specimen Type Clean catch urine 04/28/21 23:16 Urine Color Yellow (YELLOW) 04/28/21 23:16 Urine Appearance Clear (CLEAR) 04/28/21 23:16 Urine pH 6.0 (5.0 - 8.0) 04/28/21 23:16 Ur Specific [place] 1.015 (1.000-1.030) 04/28/21 23:16 Urine Protein 2+ (NEGATIVE) 04/28/21 23:16 Urine Glucose (UA) 3+ (NEGATIVE) 04/28/21 23:16 Urine Ketones 3+ (NEGATIVE) 04/28/21 23:16 Urine Occult Blood 1+ (NEGATIVE) 04/28/21 23:16 Urine Nitrite Negative (NEGATIVE) 04/28/21 23:16 Urine Bilirubin Negative (NEGATIVE) 04/28/21 23:16 Urine Urobilinogen Normal (NORMAL) 04/28/21 23:16 Ur Leukocyte Esterase Negative (NEGATIVE) 04/28/21 23:16 Urine RBC 0-2 /HPF (0-3) 04/28/21 23:16 Urine WBC None seen /HPF (0-5) 04/28/21 23:16 Ur Squamous Epith Cells Rare /HPF (NEGATIVE) 04/28/21 23:16 Urine Bacteria Negative /HPF (NEGATIVE) 04/28/21 23:16 Ur Culture Indicated? No/not indicated 04/28/21 23:16 SARS-CoV-2 (PCR) Positive (NEGATIVE) A 04/28/21 14:42 Influenza Type A (PCR) Negative (NEGATIVE) 04/28/21 14:42 Influenza Type B (PCR) Negative (NEGATIVE) 04/28/21 14:42 RSV (PCR) Negative (NEGATIVE) 04/28/21 14:42 Radiology Reviewed: Yes Plan (1) Acute respiratory failure with hypoxia: Status: Acute Narrative Support Text: Oxygenation has improved since yesterday Plan: supplemental oxygen Repeat labs ABG CXR Trend labs, CXR, and ABG PT See EMR (2) 2019 novel coronavirus-infected pneumonia (NCIP): Status: Acute Narrative Support Text: Pneumonia worse per CXR this am. Plan: Continue Rx and repeat CXR in am. (3) Generalized weakness: Status: Acute (4) Dyspnea: Status: Acute Qualifiers: Dyspnea type: shortness of breath Qualified Code(s): R06.02 - Shortness of breath
[2021-05-07] MEDS: SNACK - Diabetic Appropriate PO SCH (20:44)
[2021-05-07] MEDS: ZOCOR TAB 20 MG PO SCH (21:15)
[2021-05-08 04:40] LABS: ABG BASE EXCESS 8.1 mmol/L (-2.0-2.0); ABG HCO3 32.8 mmol/L (22-26)
[2021-05-08 04:41] LABS: ABG ALLEN TEST POS
[2021-05-08 05:17] LABS: BASOPHILS % (AUTO) 0.1 % (0.2-1.0); HEMATOCRIT 29.9 % (36.0-47.0); HEMOGLOBIN 10.1 g/dL (12.0-16.0); LYMPHOCYTES # (AUTO) 1.2 X10^3/uL (1.3-2.9); LYMPHOCYTES % (AUTO) 8.5 % (21.0-51.0); MEAN CORPUSCULAR HEMOGLOBIN 29.3 pg (27.0-34.0); MEAN CORPUSCULAR HGB CONC 33.8 g/dL (33.0-35.0); MEAN CORPUSCULAR VOLUME 86.6 fL (80.0-100.0); MEAN PLATELET VOLUME 7.7 fL (7.4-11.0); MONOCYTES # (AUTO) 0.9 x10^3/uL (0.3-0.8); MONOCYTES % (AUTO) 6.2 % (0.0-13.0); NEUTROPHILS # (AUTO) 12.3 x10^3/uL (2.2-4.8); NEUTROPHILS % (AUTO) 85.2 % (42.0-75.0); PLATELET COUNT 238 X10^3/uL (150.0-450.0); RED BLOOD COUNT 3.46 X10^6/uL (3.5-5.4); WHITE BLOOD COUNT 14.4 X10^3/uL (3.6-10.0)
[2021-05-08 05:25] LABS: ALANINE AMINOTRANSFERASE 19 Units/L (12-78); ALBUMIN 2.2 g/dL (3.4-5.0); ALKALINE PHOSPHATASE 38 Units/L (46-116); ASPARTATE AMINO TRANSFERASE 12 Units/L (15-37); BLOOD UREA NITROGEN 16 mg/dL (7-18); CALCIUM 8.1 mg/dL (8.5-10.1); CARBON DIOXIDE 30.6 mmol/L (21-32); CHLORIDE 102 mmol/L (98-107); COR CA(FOR HYPOALB) 9.5 mg/dL (8.5-10.1); COR NA(FOR HYPERGLY) 141 mmol/L (136-145); CREATININE 0.63 mg/dL (0.55-1.02); SODIUM 137 mmol/L (136-145); TOTAL PROTEIN 4.8 g/dL (6.4-8.2); eGFR NON BLACK RACES > 60 (>60)
[2021-05-08] MEDS: ZOSYN VIAL 3.375 GRAMS 3.375 G in NS 100 ML IV + SPIKE MINIBAG* 100 ML IV SCH ×2 (05:45→13:55)
[2021-05-08] MEDS: SOLU-Medrol 40 MG VIAL IVP SCH ×2 (05:45→13:55)
[2021-05-08] MEDS: SYNTHROID 75 mcg TAB PO SCH (05:46)
[2021-05-08] MEDS: NovoLIN R (or HumuLIN R) SUBCUT PRN ×3 (05:50→15:37)
--- NOTE | 2021-05-08 06:26 | RAD ---
HISTORYCOVID PNEUMONIASTUDYCHEST, 1 [id number]/12/2021.TECHNIQUEAP view of the chestFINDINGSCardiac and mediastinal contours are within normal limits. No significant change in bilateral airspace opacities with the lower and peripheral lung predominance. No definite pleural effusion or pneumothorax.IMPRESSIONNo significant change in COVID pneumonia.Electronically signed by: Noah Brian (May 08, 2021 06:24:35)
[2021-05-08] MEDS ORDERED: GLUCOPHAGE ONE (08:33)
[2021-05-08] MEDS: CYMBALTA PO SCH (08:43)
[2021-05-08] MEDS: VITAMIN D3 125 mcg (5,000 UNITS) PO SCH (08:43)
[2021-05-08] MEDS: ZINC SULFATE PO SCH (08:43)
[2021-05-08] MEDS: ZITHROMAX TAB 250 MG PO SCH (08:43)
[2021-05-08] MEDS: VITAMIN C PO SCH (08:44)
[2021-05-08] MEDS: PEPCID TAB 40 MG PO SCH (08:44)
[2021-05-08] MEDS: HEMOCYTE-PLUS PO SCH (08:44)
[2021-05-08] MEDS: ZESTRIL TAB 5 MG PO SCH (08:44)
[2021-05-08] MEDS: VITAMIN A PO SCH (08:45)
[2021-05-08] MEDS: GLUCOPHAGE PO SCH (08:45)
[2021-05-08] MEDS: LOVENOX INJ 30 MG SYR SC SCH (08:45)
[2021-05-08] MEDS ORDERED: MILK OF MAGNESIA PO SCH (10:00)
[2021-05-08] MEDS: PULMICORT NEB TX 0.5 MG NEB SCH (10:09)
[2021-05-08] MEDS: BROVANA IN SCH (10:09)
[2021-05-08 17:10] VITALS: BP 138/67
[2021-05-08] MEDS ORDERED: COLACE CAP 100 MG PO SCH (21:00)
== END 2021-05-08 17:20 | disposition home or self-care (01) | DRG 177 ==
LOC: ER 13:02 → ICU 17:09
PROVIDERS: ADMIT Internal Medicine; ATTEND Internal Medicine
DX: J96.01 Acute respiratory failure with hypoxia; R53.1 Weakness; E11.65 Type 2 diabetes mellitus with hyperglycemia; I10 Essential (primary) hypertension; R06.02 Shortness of breath; J12.82 Pneumonia due to coronavirus disease 2019; R94.31 Abnormal electrocardiogram [ECG] [EKG]; E03.8 Other specified hypothyroidism; U07.1 COVID-19; E78.2 Mixed hyperlipidemia; R55 Syncope and collapse; R79.82 Elevated C-reactive protein (CRP); R26.89 Other abnormalities of gait and mobility